=== PATIENT | male | born 1930 | race Caucasian/White ===

== ENCOUNTER 2017-02-18 13:23 | Outpatient (RCR) | payer MEDICARE ==
[2017-01-15] MEDS: CYANOCOBALAMIN 1000MCG/ML VIAL IM ONLY PRN (12:00)
[2017-01-15 13:53] LABS: PLATELET COUNT, AUTOMATED 25 K/uL (150-450)
[2017-01-15 14:19] VITALS: BP 114/50
--- NOTE | 2017-01-18 01:03 | ONCOLOGY FOLLOW UP NOTE ---
EVENT DATE: January 15, 2017 DIAGNOSES 1. Thrombocytopenia. 2. Mild anemia. 3. Hyperlipidemia. 4. Hypertension. 5. Peripheral vascular disease. 6. Depression. 7. History of skin cancer. CHIEF COMPLAINT The patient is here today for followup of his thrombocytopenia. HEMATOLOGY HISTORY The patient is an 85-year-old male who has been followed by Dr. Aguilar Draper for thrombocytopenia. He had a CBC done on July 20, 2015 which showed white count 8000, hemoglobin 13, hematocrit 40.9 and platelets 36,000. There is no abnormality in the differential count. He has mild renal impairment with creatinine 1.5. He had also history of glaucoma which is getting worse lately, and the patient followed by Dr. Coles in [place] for that. He had a history of hypertension on medication. The patient denies any bruising or excessive bleeding. He does not know if he has had this problem in the past or not. Repeat CBC showed white count 6.9, hemoglobin 12.8, hematocrit 58.9, platelets 30,000. Serum folate and red cell folate were normal. Vitamin B12 level is normal at 436; but, methylmalonic acid is high at 0.5. Platelet associated antibodies, direct and indirect, were negative. HISTORY OF PRESENT ILLNESS Patient is here today for followup of his thrombocytopenia. He denies any bleeding, but he has excessive bruising. He is really asymptomatic today and he is doing fine. PAST MEDICAL HISTORY 1. Glaucoma. 2. Hyperlipidemia. 3. Hypertension. 4. Peripheral vascular disease. 5. Depression. 6. History of skin cancer. PAST SURGICAL HISTORY 1. Trabeculectomy two times before. 2. Removal of skin cancer in the past. 3. Tonsillectomy as a child. 4. Eye surgery for glaucoma and cataract. SOCIAL HISTORY The patient is a . He has one daughter. 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 He quit tobacco in 1990 after one pack a day for forty years. He has one drink per week roughly. Denies any abuse of illicit drugs. FAMILY HISTORY Brother had colon cancer in his eighties. CURRENT MEDICATIONS 1. Alphagan 3 drops per day, both eyes. 2. Pred-Forte eye drops, 1 drop per day. 3. Timolol eye drops, 1 drop per day. 4. Dorzolamide eye drops, 1 drop daily. 5. Lisinopril 10 mg once daily. 6. Simvastatin 10 mg once daily. 7. Acetazolamide 250 mg tablet b.i.d. 8. Lisinopril/hydrochlorothiazide 10/12.5 mg half tablet q.a.m. 9. Vitamin D3 at 2000 units daily. 10. Aspirin 81 mg daily. ALLERGIES No known drug allergies. REVIEW OF SYSTEMS CONSTITUTIONAL: No appetite or weight change. No fever, chills or sweating. No recent infection. HEENT: Ears: No tinnitus or hearing problem. Nose: No nasal discharge or epistaxis. Throat: He has bleeding after tooth extraction, which resolved. Eyes: No diplopia or visual changes. RESPIRATORY: He has shortness of breath. He has cough, which is getting better. CARDIOVASCULAR: No chest pain, orthopnea, or paroxysmal nocturnal dyspnea (PND) . No edema. No palpitations. GASTROINTESTINAL: No nausea or vomiting. No diarrhea or constipation. No change in bowel movements. No heartburn or swallowing difficulties. No abdominal pain. No jaundice. No hematemesis, melena or rectal bleeding. GENITOURINARY: No hematuria or dysuria. MUSCULOSKELETAL: No pain in the muscles, joints or bones. NEUROLOGICAL: No tingling or numbness in the hands or feet. No headaches or convulsions. HEMATOLOGIC/LYMPHATIC: He has excessive bruising. SKIN: No skin rash or lumps. PSYCHIATRIC: No anxiety or depression. PHYSICAL EXAMINATION GENERAL: Looks stable. Well-developed, well-nourished, and in no acute distress. VITAL SIGNS: Blood pressure 114/50, pulse 60 per minute, respirations 16 per minute, temperature 98.1, pulse ox 96% on room air. HEENT: Head: Atraumatic. No sinus tenderness to palpation. Eyes: No icterus or conjunctivitis. Mouth and throat: No oral thrush or mucositis. NECK: Supple. No cervical or supraclavicular lymphadenopathy. LUNGS: Clear to auscultation and percussion bilaterally. HEART: Regular rate and rhythm. No gallops, murmurs, clicks or rubs. ABDOMEN: Soft and lax. No tenderness. No hepatosplenomegaly. No masses. EXTREMITIES: No cyanosis, clubbing or edema. LYMPHATICS: No peripheral lymphadenopathy. NEUROLOGICAL: Conscious, alert and oriented times three. No focal motor or sensory deficits. PSYCHIATRIC: Mood and affect appear normal. SKIN: No skin rash, bruise or purpuric eruption. DIAGNOSTIC DATA CBC showed white count 6.3, hemoglobin 12.3, hematocrit 37.7, platelets 25,000. ASSESSMENT 1. 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 Patient was found to have high methylmalonic acid assay at 0.5, and for this reason patient received B12 supplement 1000 mcg intramuscularly every month. His methylmalonic acid normalized after starting B12 and dropped to 0.15 , but his platelets remained low and stable. His platelet count is usually in the range between 30,000-40,000, but today it is 25,000, but patient denies any bleeding. I advised the patient to have his blood count to be checked every month, and to come back in four months with another CBC, and I advised him to come to the office or to the emergency room if he has any bleeding or excessive bruising other than usual, and he is aware of that. 2. Biochemical deficiency of vitamin B12. Patient currently on vitamin B12 shots 1000 mcg deep subcutaneously every month. PLAN 1. Continue followup. 2. Patient to return in four months with CBC. 3. CBC to be checked monthly. 4. Patient is to contact us for any new concerns or complaints. TERRY
[~2017-02-18 13:23] MED LIST: ACET250T19 PO; ALBU8.5H IH; ASPI-1471 PO; BRIM5DRO7 OP; CARV12.578 PO; CHOL200038 PO; DORZ10DR3 OP; FLU45SYR25 IM ONLY; FLUT16SP19 NS; GEMF600T91 PO; LISI-351 PO; LISI-362 PO; OXYGENHOME INH; PANT40TA65 PO; PNEU0.5D3 IM; PRED1DRO2 OP; SIMV10TA98 PO
[2017-02-18] MEDS: CYANOCOBALAMIN 1000MCG/ML VIAL IM ONLY PRN (13:26)
[2017-02-18 13:50] LABS: PLATELET COUNT, AUTOMATED 32 K/uL (150-450)
[2017-04-16] MEDS ORDERED: SIMV10TA98 PO (15:58)
== END 2017-04-14 ==
LOC: SPU 13:23
PROVIDERS: ATTEND Internal Medicine Hematology
DX: D69.6 Thrombocytopenia, unspecified (principal); E53.8 Deficiency of other specified B group vitamins; E78.5 Hyperlipidemia, unspecified; D64.9 Anemia, unspecified; I10 Essential (primary) hypertension; Z85.828 Personal history of other malignant neoplasm of skin; Z87.891 Personal history of nicotine dependence; Z79.899 Other long term (current) drug therapy
CPT/HCPCS: 36415; 85025; 96372; G0463; J3420; 99212

== ENCOUNTER 2017-08-12 12:56 | Outpatient (RCR) | payer MEDICARE ==
[2017-06-04 12:38] VITALS: BP 143/69
[2017-06-04 13:24] LABS: PLATELET COUNT, AUTOMATED 27 K/uL (150-450)
--- NOTE | 2017-06-04 20:24 | ONCOLOGY FOLLOW UP NOTE ---
EVENT DATE: June 04, 2017 DIAGNOSES 1. Thrombocytopenia. 2. Mild anemia. 3. Hyperlipidemia. 4. Hypertension. 5. Peripheral vascular disease. 6. Depression. 7. History of skin cancer. CHIEF COMPLAINT The patient is here today for followup of his thrombocytopenia. HEMATOLOGY HISTORY The patient is an 85-year-old male who has been followed by Dr. Aguilar Draper for thrombocytopenia. He had a CBC done on July 20, 2015 which showed white count 8000, hemoglobin 13, hematocrit 40.9 and platelets 36,000. There is no abnormality in the differential count. He has mild renal impairment with creatinine 1.5. He had also history of glaucoma which is getting worse lately, and the patient followed by Dr. Coles in [place] for that. He had a history of hypertension on medication. The patient denies any bruising or excessive bleeding. He does not know if he has had this problem in the past or not. Repeat CBC showed white count 6.9, hemoglobin 12.8, hematocrit 58.9, platelets 30,000. Serum folate and red cell folate were normal. Vitamin B12 level is normal at 436; but, methylmalonic acid is high at 0.5. Platelet associated antibodies, direct and indirect, were negative. HISTORY OF PRESENT ILLNESS Patient is here today for followup of his thrombocytopenia. He is really totally asymptomatic, except for feeling hot in his left ear sometimes. PAST MEDICAL HISTORY 1. Glaucoma. 2. Hyperlipidemia. 3. Hypertension. 4. Peripheral vascular disease. 5. Depression. 6. History of skin cancer. PAST SURGICAL HISTORY 1. Trabeculectomy two times before. 2. Removal of skin cancer in the past. 3. Tonsillectomy as a child. 4. Eye surgery for glaucoma and cataract. SOCIAL HISTORY The patient is a . He has one daughter. 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 He quit tobacco in 1990 after one pack a day for forty years. He has one drink per week roughly. Denies any abuse of illicit drugs. FAMILY HISTORY Brother had colon cancer in his eighties. CURRENT MEDICATIONS 1. Alphagan 3 drops per day, both eyes. 2. Pred-Forte eye drops, 1 drop per day. 3. Timolol eye drops, 1 drop per day. 4. Dorzolamide eye drops, 1 drop daily. 5. Lisinopril 10 mg once daily. 6. Simvastatin 10 mg once daily. 7. Acetazolamide 250 mg tablet b.i.d. 8. Lisinopril/hydrochlorothiazide 10/12.5 mg half tablet q.a.m. 9. Vitamin D3 at 2000 units daily. 10. Aspirin 81 mg daily. ALLERGIES No known drug allergies. REVIEW OF SYSTEMS CONSTITUTIONAL: No appetite or weight change. No fever, chills or sweating. No recent infection. HEENT: Ears: No tinnitus or hearing problem. Nose: No nasal discharge or epistaxis. Throat: He has bleeding after tooth extraction, which resolved. Eyes: No diplopia or visual changes. RESPIRATORY: He has shortness of breath. He has cough, which is getting better. CARDIOVASCULAR: No chest pain, orthopnea, or paroxysmal nocturnal dyspnea (PND) . No edema. No palpitations. GASTROINTESTINAL: No nausea or vomiting. No diarrhea or constipation. No change in bowel movements. No heartburn or swallowing difficulties. No abdominal pain. No jaundice. No hematemesis, melena or rectal bleeding. GENITOURINARY: No hematuria or dysuria. MUSCULOSKELETAL: No pain in the muscles, joints or bones. NEUROLOGICAL: No tingling or numbness in the hands or feet. No headaches or convulsions. HEMATOLOGIC/LYMPHATIC: He has excessive bruising. SKIN: No skin rash or lumps. PSYCHIATRIC: No anxiety or depression. PHYSICAL EXAMINATION GENERAL: Looks stable. Well-developed, well-nourished, and in no acute distress. VITAL SIGNS: Blood pressure 143/69, pulse 57 per minute, respirations 16 per minute, temperature 98.4, pulse ox 97% on room air. HEENT: Head: Atraumatic. No sinus tenderness to palpation. Eyes: No icterus or conjunctivitis. Mouth and throat: No oral thrush or mucositis. NECK: Supple. No cervical or supraclavicular lymphadenopathy. LUNGS: Clear to auscultation and percussion bilaterally. HEART: Regular rate and rhythm. No gallops, murmurs, clicks or rubs. ABDOMEN: Soft and lax. No tenderness. No hepatosplenomegaly. No masses. EXTREMITIES: No cyanosis, clubbing or edema. LYMPHATICS: No peripheral lymphadenopathy. NEUROLOGICAL: Conscious, alert and oriented times three. No focal motor or sensory deficits. PSYCHIATRIC: Mood and affect appear normal. SKIN: No skin rash, bruise or purpuric eruption. DIAGNOSTIC DATA CBC is still pending. ASSESSMENT 1. 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 Patient was found initially to have high methylmalonic acid assay at 0.5, for which the patient received B12 supplement 1000 mcg intramuscularly every month. His methylmalonic acid normalized after starting B12 shots and dropped to 0.15, but his platelet count remained low, but stable. His platelet count usually ranges between 30,000-40,000. His blood count for today is still pending. I am planning to wait for the result of the blood count to decide about further management. If his platelet count is stable I am planning to see him again in four months with CBC at that time. I advised the patient to contact us if he has any excessive bruising or bleeding. 2. Biochemical deficiency of vitamin B12, normalized with B12 shots 63336 mcg every month. PLAN 1. Continue followup. 2. Patient to return in four months with CBC. 3. CBC to be checked monthly. 4. Patient is to contact us for any new concerns or complaints. TERRY
[2017-07-09 12:40] VITALS: BP 144/62
[2017-07-09 13:16] LABS: PLATELET COUNT, AUTOMATED 25 K/uL (150-450)
[~2017-08-12 12:56] MED LIST changes: +SODCLOD OD; +TETR15DR9 OP
[2017-08-12 13:22] VITALS: BP 106/45
[2017-08-12 13:48] LABS: PLATELET COUNT, AUTOMATED 28 K/uL (150-450)
== END 2017-09-01 ==
LOC: SPU 12:56
PROVIDERS: ATTEND Internal Medicine Hematology
DX: D69.6 Thrombocytopenia, unspecified (principal); E53.8 Deficiency of other specified B group vitamins; D64.9 Anemia, unspecified; E78.5 Hyperlipidemia, unspecified; I10 Essential (primary) hypertension; I73.9 Peripheral vascular disease, unspecified; Z85.828 Personal history of other malignant neoplasm of skin; Z87.891 Personal history of nicotine dependence; R06.02 Shortness of breath; R05 Cough
CPT/HCPCS: 36415; 85025; G0463; 99212

== ENCOUNTER 2017-09-16 11:28 | Outpatient (RCR) | payer MEDICARE ==
[2017-09-10 13:01] VITALS: BP 100/54
[2017-09-10 13:52] LABS: PLATELET COUNT, AUTOMATED 20 K/uL (150-450)
[2017-09-16] MEDS ORDERED: ACETAMINOPHEN 325 MG TAB PO PRN ×2 (12:05)
[2017-09-16] MEDS ORDERED: diphenhydrAMINE 25 MG CAP PO PRN ×2 (12:05)
[2017-09-16 12:44] VITALS: BP 115/64
[2017-09-16 13:01] VITALS: BP 97/56
[2017-09-16 13:36] VITALS: BP 93/54
[2017-09-16 15:15] LABS: PLATELET COUNT, AUTOMATED 50 K/uL (150-450)
[2017-09-16 15:21] VITALS: BP 111/76
== END 2017-09-18 10:13 | disposition home or self-care (01) ==
LOC: SPU 11:28
PROVIDERS: ATTEND Internal Medicine Hematology
DX: D69.6 Thrombocytopenia, unspecified (principal); E78.5 Hyperlipidemia, unspecified
CPT/HCPCS: 36415; 85025; 86900; 86901; A9270; P9035; Q0163

== ENCOUNTER 2017-10-15 12:38 | Outpatient (RCR) | payer MEDICARE ==
[2017-09-30 13:54] LABS: PLATELET COUNT, AUTOMATED 24 K/uL (150-450)
[2017-09-30 16:12] VITALS: BP 113/57
[2017-09-30 16:22] VITALS: BP 122/58
[2017-09-30 16:25] VITALS: BP 122/58
[2017-09-30 16:32] VITALS: BP 122/58
--- NOTE | 2017-09-30 16:50 | Oncology Note ---
PRIMARY CARE PHYSICIAN: Baron Sheikh LAST SEEN BY DR. Vargas 06/04/2017 ACCOMPANIED BY: Self, Home health aid dropped patient off Chief complaint: F/u on Labs Thombocytopenia DIAGNOSIS Thrombocytopenia secondary to ITP- plt today is 23,000 HPI Mr. 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 Patient is seen and examined at the Cancer center, hemodynamically stable, he reports feeling in his usual state of health, besides some easy bruising after he hit himself something around the house. Patient denies any excessive bleeding, he denies any cardiac type chest pain, he denies fevers, chills night sweats. Patient is vision impaired Due to glaucoma who has had few surgeries in [place] left eye worse than the right eye. Patient informs me that his weight loss began after the gallstones removal. he began to lose weight his typical weight was 170lbs aprox. Today's weight is 132.9 pounds. Significant past medical history of glaucoma; hyperlipidemia; history of skin cancer; hypertension; peripheral vascular disease; history of gallstones removal. Of note initial workup done in August 2015. B12 was normal; Serum folate and red cell folate were normal. MMA/ methylmalonic acid was high at 0.5. which was corrected after B12 supplementation 1000mcg Im onth. Living conditions: Patient lives alone but he has a home health aide help twice a week Diagnostic tests & Reports Reviewed on [employer] PAST MEDICAL HISTORY 1. Glaucoma. 2. Hyperlipidemia. 3. Hypertension. 4. Peripheral vascular disease. 5. Depression. 6. History of skin cancer. PAST SURGICAL HISTORY 1. Trabeculectomy two times before. 2. Removal of skin cancer in the past. 3. Tonsillectomy as a child. 4. Eye surgery for glaucoma and cataract. SOCIAL HISTORY The patient is a . He has one daughter. 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 He quit tobacco in 1990 after one pack a day for forty years. He has one drink per week roughly. Denies any abuse of illicit drugs. FAMILY HISTORY Brother had colon cancer in his eighties. CURRENT MEDICATIONS 1. Alphagan 3 drops per day, both eyes. 2. Pred-Forte eye drops, 1 drop per day. 3. Timolol eye drops, 1 drop per day. 4. Dorzolamide eye drops, 1 drop daily. 5. Lisinopril 10 mg once daily. 6. Simvastatin 10 mg once daily. 7. Acetazolamide 250 mg tablet b.i.d. 8. Lisinopril/hydrochlorothiazide 10/12.5 mg half tablet q.a.m. 9. Vitamin D3 at 2000 units daily. 10. Aspirin 81 mg daily. PREVENTIVE: MEDICATIONS: ALLERGIES: No known drug allergies. REVIEW OF SYSTEMS CONSTITUTION: denies fevers, sweats, appetite ok, reports fatigue EYES: +Vision impaired ENT: no mouth soreness, trouble swallowing, neck masses RESPIRATORY: Denies pleuritic pain, dyspnea, wheezing, coughing CARDIOVASCULAR: Denies cardiac type chest pain, palpitations, leg edema GI: denies trouble swallowing, indigestion, abdominal pain, diarrhea, constipation, : No blood in the urine, no urinary urgency/frequency, no dysuria,, no black stools MUSCULOSKELETAL: +limited ROM, no back pain NEURO: denies headaches, dizziness, neuropathy, focal weakness SKIN: bruising, HEMATOLOGY: +bruise easily PSYCH: denies mood changes, depression, anxiety PHYSICAL EXAM Vital Signs Temperature: 97.8 Pulse: 64 BP Systolic: 107 BP Diastolic: 50 Respiratory Rate: 16 O2 SAT: 93% RA O2 Delivery: Height (inches) Weight lb: 133 pounds Weight oz: Weight Kg (J Carlos): Pain: 1 PERFORMANCE STATUS: ECOG 3-Capable of only limited self-care; GENERAL: pleasant conversant gentleman , very well versed, with visual limitations due to glaucoma, in no apparent distress ORAL: mucosa moist without lesions, pharynx not injected EYES: no icterus, no pale conjunctivae, Glaucoma, cloudy appearance lenses, Left eye worse than right eye. NECK: supple, no masses, no palpable lymph nodes LUNGS: diminished bilaterally, breathing, non-labored CVS: regular rate, rhythm, nl s1, s2, no murmurs ABD: normal bowel sounds, soft non tender, non-distended, no hepatomegaly, no splenomegaly, no masses EXTREMITIES: no edema, no cyanosis MUSCULOSKELETAL: unsteady gait NEURO: alert, appropriate, motor grossly normal, sensory grossly non focal, and cranial nerves grossly intact NODES: no cervical, supraclavicular, axillary, inguinal adenopathy SKIN: minimal ecchymosis, no open wounds, no itchiness. PSYCH: normal mood and affect, good judgment and insight. Assessment & Plan 1. Thrombocytopenia, most probably due to chronic idiopathic thrombocytopenic purpura. platelet count is 23K , his baseline is in the 30-40K. The patient had a high methylmalonic acid assay at 0.5 and for this reason the patient received vitamin B12 supplements in the form of 1000 mcg intramuscularly. Despite that fact, his methylmalonic acid normalized at 0.15, but his platelets are still low today. The patient was advised to be careful about the use of aspirin, which is needed because of his vascular disease and bleeding because of the low platelets. The patient was advised to contact us for any excessive bruising or bleeding. 2. Vitamin B12 deficiency biochemically with high methylmalonic acid assay at 0.5. The patient received vitamin B12 supplements in the form of shots 1000 mcg and his methylmalonic acid assay normalized at 0.15 in the past. PLAN 1. Transfuse 1 unit of Leukreduced Platelets today. followed by cbc check one hour s/p transfusion. 2. CBC to be checked monthly. 3. Re-check B12, folate, MMA 4. Continue B12 at 1000 mcg deep subcutaneously every month, until Discontinued by MD/JEZ 5. Continue follow up. 6. The patient to contact us for any new concerns or complaints. 7. Bleeding and Fall precaution in the setting of low platelet and aspirin regimen for underlying cardiac disease. 8. Patient to Go to ER if any active bleeding, SOB, chest or abdominal pain. 9. The patient to return in three months with CBC. 10. Recommend Patient to f/u with GI in [place], significant history of gall stones removal 11. Recommend Patient to f/u with Infantry Officer in [place] TIME SPENT: 25 minutes > 20 minutes includes but not limited to discussion, counselling and co-ordination~ of care. Discussion with other health care providers, record review, review of lab work, diagnostic tests. Plan discussed extensively with patient. All the questions answered today. Thank you for the opportunity to be involved in the care of Mr. Aries Noel. Billing Level: Return visit 4 BASIL WHITE, ONC Sep 30, 2017 15:31
[2017-09-30 16:56] VITALS: BP 141/65
[2017-09-30 18:13] LABS: PLATELET COUNT, AUTOMATED 44 K/uL (150-450)
[~2017-10-15 12:38] MED LIST changes: +ACETAMINOPHEN 325 MG TAB PO ONE; +CYANOCOBALAMIN 1000MCG/ML VIAL IM ONLY PRN; +DEXTROSE 5%(*) 100 ML BAG 100 ML IVPB PRN; +LIDOCAINE/SOD BICARB 8.4% SYR ID PRN; +NS(*) 0.9% 100 ML BAG 100 ML IVPB PRN; +NS(*) 0.9% 500 ML BAG 500 ML IV PRN; +diphenhydrAMINE 25 MG CAP PO ONE
[2017-10-15 13:56] LABS: PLATELET COUNT, AUTOMATED 22 K/uL (150-450)
[2017-10-15 15:06] VITALS: BP 128/76
--- NOTE | 2017-10-15 17:11 | ONCOLOGY FOLLOW UP NOTE ---
EVENT DATE: October 15, 2017 DIAGNOSES 1. Thrombocytopenia. 2. Mild anemia. 3. Hyperlipidemia. 4. Hypertension. 5. Peripheral vascular disease. 6. Depression. 7. History of skin cancer. CHIEF COMPLAINT The patient is here today for followup of his thrombocytopenia. HEMATOLOGY HISTORY The patient is an 86-year-old male who has been followed by Dr. Aguilar Draper for thrombocytopenia. He had a CBC done on July 20, 2015 which showed white count 8000, hemoglobin 13, hematocrit 40.9 and platelets 36,000. There is no abnormality in the differential count. He has mild renal impairment with creatinine 1.5. He had also history of glaucoma which is getting worse lately, and the patient followed by Dr. Coles in [place] for that. He had a history of hypertension on medication. The patient denies any bruising or excessive bleeding. He does not know if he has had this problem in the past or not. Repeat CBC showed white count 6.9, hemoglobin 12.8, hematocrit 58.9, platelets 30,000. Serum folate and red cell folate were normal. Vitamin B12 level is normal at 436; but, methylmalonic acid is high at 0.5. Platelet associated antibodies, direct and indirect, were negative. HISTORY OF PRESENT ILLNESS Patient is here today for followup of his thrombocytopenia. He is doing fine currently. He is complaining of runny nose. He bruises easily. He is weak, tired and fatigued. PAST MEDICAL HISTORY 1. Glaucoma. 2. Hyperlipidemia. 3. Hypertension. 4. Peripheral vascular disease. 5. Depression. 6. History of skin cancer. PAST SURGICAL HISTORY 1. Trabeculectomy two times before. 2. Removal of skin cancer in the past. 3. Tonsillectomy as a child. 4. Eye surgery for glaucoma and cataract. SOCIAL HISTORY The patient is a . He has one daughter. 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 He quit tobacco in 1990 after one pack a day for forty years. He has one drink per week roughly. Denies any abuse of illicit drugs. FAMILY HISTORY Brother had colon cancer in his eighties. CURRENT MEDICATIONS 1. Alphagan 3 drops per day, both eyes. 2. Pred-Forte eye drops, 1 drop per day. 3. Timolol eye drops, 1 drop per day. 4. Dorzolamide eye drops, 1 drop daily. 5. Lisinopril 10 mg once daily. 6. Simvastatin 10 mg once daily. 7. Acetazolamide 250 mg tablet b.i.d. 8. Lisinopril/hydrochlorothiazide 10/12.5 mg half tablet q.a.m. 9. Vitamin D3 at 2000 units daily. 10. Aspirin 81 mg daily. ALLERGIES No known drug allergies. REVIEW OF SYSTEMS CONSTITUTIONAL: No appetite or weight change. No fever, chills or sweating. No recent infection. HEENT: Ears: No tinnitus or hearing problem. Nose: He has nasal discharge. No epistaxis. Throat: He has bleeding after tooth extraction, which resolved. Eyes: No diplopia or visual changes. RESPIRATORY: He has shortness of breath. He has cough, which is getting better. CARDIOVASCULAR: No chest pain, orthopnea, or paroxysmal nocturnal dyspnea (PND) . No edema. No palpitations. GASTROINTESTINAL: No nausea or vomiting. No diarrhea or constipation. No change in bowel movements. No heartburn or swallowing difficulties. No abdominal pain. No jaundice. No hematemesis, melena or rectal bleeding. GENITOURINARY: No hematuria or dysuria. MUSCULOSKELETAL: No pain in the muscles, joints or bones. NEUROLOGICAL: No tingling or numbness in the hands or feet. No headaches or convulsions. HEMATOLOGIC/LYMPHATIC: He bruises easily. He is weak, tired and fatigued. SKIN: No skin rash or lumps. PSYCHIATRIC: No anxiety or depression. PHYSICAL EXAMINATION GENERAL: Looks stable. Well-developed, well-nourished, and in no acute distress. VITAL SIGNS: Blood pressure 100/54, pulse 66 per minute, respirations 16 per minute, temperature 97.7, pulse ox 93% on room air. HEENT: Head: Atraumatic. No sinus tenderness to palpation. Eyes: No icterus or conjunctivitis. Mouth and throat: No oral thrush or mucositis. NECK: Supple. No cervical or supraclavicular lymphadenopathy. LUNGS: Clear to auscultation and percussion bilaterally. HEART: Regular rate and rhythm. No gallops, murmurs, clicks or rubs. ABDOMEN: Soft and lax. No tenderness. No hepatosplenomegaly. No masses. EXTREMITIES: No cyanosis, clubbing or edema. LYMPHATICS: No peripheral lymphadenopathy. NEUROLOGICAL: Conscious, alert and oriented times three. No focal motor or sensory deficits. PSYCHIATRIC: Mood and affect appear normal. SKIN: No skin rash, bruise or purpuric eruption. DIAGNOSTIC DATA CBC is still pending. ASSESSMENT 1. 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 Patient was found to have high methylmalonic acid assay at 0.5, for which the patient received vitamin B12 supplement 1000 mcg intramuscularly/ subcutaneously every month. His methylmalonic acid assay normalized after starting B12 shots and dropped to 0.15, but his platelet count remained low, but stable. Usually his platelet count runs between 30,000-40,000. His blood count for today is pending, and I am planning to review the result and if the patient has stable platelet count, I am planning to see him again in three months with CBC, but I will repeat his CBC on a monthly basis. I advised the patient to contact us if he has excessive bruising or bleeding. 2. Biochemical deficiency of vitamin B12, normalized with B12 shots 28130 mcg every month. We will continue the same. PLAN 1. Continue followup. 2. Vitamin B12 shots 1000 mcg subcutaneously every month. 3. Patient to return in three months with CBC. 4. CBC to be checked monthly. 5. Patient is to contact us for any new concern or complaints. TIFFANIED
== END 2017-10-21 14:05 | disposition home or self-care (01) ==
LOC: SPU 12:38
PROVIDERS: ATTEND Internal Medicine Hematology
DX: D69.59 Other secondary thrombocytopenia (principal); D69.3 Immune thrombocytopenic purpura; E53.8 Deficiency of other specified B group vitamins; Z87.891 Personal history of nicotine dependence; Z79.899 Other long term (current) drug therapy; D64.9 Anemia, unspecified; E78.5 Hyperlipidemia, unspecified; I10 Essential (primary) hypertension; Z85.828 Personal history of other malignant neoplasm of skin; R53.1 Weakness; R53.83 Other fatigue; R06.02 Shortness of breath
CPT/HCPCS: 36415; 85025; 86900; 86901; 96372; A9270; G0463; J3420; J7040; P9035; Q0163; 36430; 99212

== ENCOUNTER → 2017-12-09 | Outpatient (CLI) | payer MEDICARE ==
[~2017-12-09] MED LIST changes: -ACETAMINOPHEN 325 MG TAB PO ONE; -CYANOCOBALAMIN 1000MCG/ML VIAL IM ONLY PRN; -DEXTROSE 5%(*) 100 ML BAG 100 ML IVPB PRN; -GEMF600T91 PO; +GEMF600T92 PO; -LIDOCAINE/SOD BICARB 8.4% SYR ID PRN; -NS(*) 0.9% 100 ML BAG 100 ML IVPB PRN; -NS(*) 0.9% 500 ML BAG 500 ML IV PRN; -diphenhydrAMINE 25 MG CAP PO ONE
--- NOTE | 2017-12-09 10:55 | RADIOLOGY IMAGING REPORT ---
FACILITY: [facility] [place] PATIENT NAME: Bert Chris : 1930 MR: [id number] V: [id number] EXAM DATE: ORDERING PHYSICIAN: LESLIE DAMIAN TECHNOLOGIST: Location: [facility] Patient: Bert Chris : 1930 Visit/Account:[id number] Date of Sevice: 12/09/2017 Spleen ultrasound INDICATION: Splenomegaly COMPARISON: CT October 08, 2016 FINDINGS: The spleen is normal in size in the sagittal dimension measuring 12.9 cm. The spleen is mildly enlar ged in the transverse dimension as before measuring up to 8.9 cm transverse. The left kidney was imaged and measures 11.2 cm sagittal dimension. Multiple left renal cysts are pr esent the largest measuring 5.5 cm. A few echogenic foci are present in the left kidney which likely represent calculi. The infrarenal aorta is mildly aneurysmal which is likely unchanged but better visualized on comparis on CT. IMPRESSION: 1. Mild unchanged splenomegaly. 2. Unchanged approximate 3 cm aortic aneurysm better visualized on prior CT. Report Dictated By: Remy Paulino MD at 12/09/2017 10:44 AM Report E-Signed By: Remy Paulino MD at 12/09/2017 10:51 AM WSN:[id number]
== END ==
LOC: US 08:37
PROVIDERS: ATTEND Internal Medicine Medical Oncology
DX: R16.1 Splenomegaly, not elsewhere classified (principal); I71.9 Aortic aneurysm of unspecified site, without rupture
CPT/HCPCS: 76705

== ENCOUNTER 2017-12-28 15:04 | Emergency (ER) | payer MEDICARE ==
[~2017-12-28 15:04] MED LIST changes: -FISH1CAP23 PO; -FURO-45 PO; -LATA2.5D7 OP; -TIMO5DRO3 OP
--- NOTE | 2017-12-28 15:17 | ER Report ---
History and Physical Time Seen By MD: 15:14 HPI/ROS CHIEF COMPLAINT: Fall HISTORY OF PRESENT ILLNESS: This is an 87-year-old male who presents to the emergency department from the [facility] for a fall. Patient had a mechanical fall last week, states he was using his cane and walked out to get the mail walking back to his house and had what he thinks is may be a trip and type fall where he landed on his buttocks, then fell over to his left shoulder. Patient has had left shoulder pain since then. 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 The patient was revealed from the [facility] center to the emergency department, the patient was now willing initially to have an IV, he didn't think was necessary. Patient ultimately does not want to be in the emergency department. He has no other complaints other than shoulder pain and some additional phlegm in his throat occasionally since the fall last week. He denies increased shortness of breath, chest pain, no fevers or chills. Denies hitting his head, does have some bruising to the left-sided neck, he states this is from cryotherapy from dermatology, they were removing actinic keratosis. REVIEW OF SYSTEMS: Constitutional: No fever, no chills. Eyes: No discharge. ENT: No sore throat. Cardiovascular: No chest pain, no palpitations. Respiratory: No cough, no shortness of breath. Gastrointestinal: No abdominal pain, no vomiting. Genitourinary: No hematuria. Musculoskeletal: As above. Skin: As above. Neurological: No headache. Allergies: Coded Allergies: No Known Drug Allergies (Unverified , 12/28/17) Home Meds Active Scripts Simvastatin (SIMVASTATIN) 10 Mg Tablet, 1 MG PO HS, #90 TAB 4 Refills Prov:JOSSE DRAPER MD 04/16/17 Pantoprazole Sodium (PANTOPRAZOLE SODIUM) 40 Mg Tablet.dr, 40 MG PO QDAY, #90 TAB.SR 4 Refills Prov:JOSSE DRAPER MD 11/07/16 Lisinopril (LISINOPRIL) 10 Mg Tablet, 10 MG PO QDAY, #90 TAB 3 Refills Prov:JOSSE DRAPER MD 04/22/16 Albuterol Sulfate 90 Mcg/Act (PROAIR HFA 90 MCG/ACT) 8.5 Gm Hfa.aer.ad, 1-2 PUFF IH 3-4XD, #1 INHALER 3 Refills Prov:JOSSE DRAPER MD 07/30/15 Oxygen (OXYGEN) Inha, 2 L INH QHS, #2 L Prov:JOSSE DRAPER MD 07/19/15 Acetazolamide (ACETAZOLAMIDE) 250 Mg Tablet, 1 TAB PO BID, #180 TAB 3 Refills Prov:JOSSE DRAPER MD 12/13/14 Reported Medications Prednisone (PREDNISONE) 50 Mg Tablet, 50 MG PO DAILY Pt to taper dose by 10mg per week. 12/14/17 Tetrahydrozoline Hcl (EYE DROPS) 15 Ml Drops, 15 ML OP AB for LANTAPROST 06/04/17 Sodium Chloride (MAGDALENA-128) 15 Ml Soln, 15 ML OD AB 06/04/17 Carvedilol (CARVEDILOL) 12.5 Mg Tablet, 12.5 MG PO BID, #10 TAB 10/20/16 Prednisolone Acetate (PRED FORTE) 1 Ml Drops.susp, 1 DROP OP QDAY 12/13/14 Dorzolamide Hcl/Timolol Maleat (COSOPT EYE DROPS) 10 Ml Drops, 1 DROP OP QDAY 12/13/14 Brimonidine Tartrate (ALPHAGAN P) 5 Ml Drops, 1 DROP OP TID 12/13/14 Past Medical/Surgical History The patient has a past medical and surgical history of hypertension, COPD, elbow fracture, legally blind, wears glasses, hard of hearing, idiopathic thrombocytopenia, skin cancer, actinic keratosis, glaucoma. Reviewed Nurses Notes: Yes Hx Smoking: Yes Smoking Status: Former Smoker Exposure to Second Hand Smoke?: No Constitutional Vital Sign - Last 24 Hours 12/28/17 12/28/17 12/28/17 12/28/17 15:14 15:15 15:30 15:45 Temp 97.5 Pulse 49 56 50 Resp 14 B/P (MAP) 111/52 110/60 (77) Pulse Ox 96 91 93 93 O2 Delivery Room Air 12/28/17 12/28/17 12/28/17 16:00 16:15 16:18 Pulse 51 49 B/P (MAP) 110/57 (74) Pulse Ox 93 90 Physical Exam General Appearance: The patient is alert, has no immediate need for airway protection and no signs of toxicity, very thin. Eyes: Pupils equal and round no pallor or injection. ENT, Mouth: Mucous membranes are dry. Respiratory: There are no retractions, lungs are clear to auscultation. Cardiovascular: Regular rate and rhythm, no murmurs, clicks or rubs. Gastrointestinal: Abdomen is soft and non tender, no masses, bowel sounds normal. Neurological: Alert and oriented 4. Moving all extremities. Following all commands. No focal neuro deficits. Skin: Bruising to the left anterior neck. Healing skin tears to the left forearm, hand and elbow. Large, stable clots/scabs to the skin tears. Bruising to the arms in multiple stages of healing. Musculoskeletal: Neck is supple non tender. Extremities very mild tenderness to the left anterior shoulder with firm palpation, no crepitus or obvious deformities. Can abduct and adduct with mild discomfort. DIFFERENTIAL DIAGNOSIS: After history and physical exam differential diagnosis was considered for contusion, shoulder fracture, dehydration and failure to thrive. Medical Decision Making EKG/Imaging Imaging ORDERING PHYSICIAN: LESLIE DAMIAN TECHNOLOGIST: Location: [facility] Patient: Bert Chris : 1930 Visit/Account:[id number] Date of Sevice: 12/28/2017 Exam type: CHEST PA AND LAT History: Fell at home, left shoulder pain Comparison: October 08, 2016. Findings: There is hyperinflation of the lung mas. There is mild blunting left costophrenic angle although appears similar to the prior study. There is no evidence of focal infiltrates, pleural effusions or pulmonary edema. No evidence of a pneumothorax or pneumomediastinum. The cardiac silhouette is normal in size. IMPRESSION: 1. Mild hyperinflation lung mas although no evidence of acute pulmonary consolidation Report Dictated By: Freya Reyes MD at 12/28/2017 3:54 PM Report E-Signed By: Freya Reyes MD at 12/28/2017 3:55 PM WSN:FRIDA ORDERING PHYSICIAN: LESLIE DAMIAN TECHNOLOGIST: Location: [facility] Patient: Bert Chris : 1930 Visit/Account:[id number] Date of Sevice: 12/28/2017 Exam type: SHOULDER MIN 2 VIEWS LEFT History: Fell at home, left shoulder pain Comparison: None. Findings: Two views of the left shoulder demonstrate mild degenerative changes of the left glenohumeral joint. There is no evidence of acute fracture or dislocation. No evidence of a left AC joint separation. IMPRESSION: 1. Mild degenerative changes of the left glenohumeral joint although no evidence of acute fracture or dislocation involving the left shoulder Report Dictated By: Freya Reyes MD at 12/28/2017 3:51 PM Report E-Signed By: Freya Reyes MD at 12/28/2017 3:52 PM WSN:FRIDA ED Course/Re-evaluation Clinical Indication for ER IV: Hydration, IV Access ED Course The patient was admitted to a room. A history of physical were obtained. Differential diagnoses were considered. The patient was sent from the oncology [facility], they were concerned with the patient's recent fall last week, his left shoulder pain, and the bruising to his arms and his neck. He also has skin tears to the left arm patient was reluctant to come to the ED however he ultimately did. I did talk to the patient's about his renal function, I did ask if he would allow us to try at least 1 IV starts and give him some fluids, the patient was a agreeable to this however we were unsuccessful on the IV start, patient's refused any additional requests. The patient also had a left shoulder x-ray which was negative for any acute findings, chest x-ray was negative for any acute findings. The patient's rbc's 3.38 H&H 9.5 and 31.1, platelet count of 67 which all laboratory studies are about the same, the platelet count has improved. The chemistry is showing the BUN 79, creatinine 2.1 glucose 192. I did review the laboratory studies and the radiology results with the patient. The patient did indicate several times that he does not want to stay in the hospital, that he "just came in to the cancer Center for his appointments and then was sent to the emergency department and just wants to go home". I did talk to the patient about home health, he does not want home health. Patient is of sound mind at the time of our interaction and the patient was ultimately discharged home. I did speak with the cancer center as noted below, they will contact him within the next 1-2 days for follow-up. The patient was in agreement with this. And was discharged home. The patient was assisted into his clothes, into a wheelchair and escorted out where he received a ride home. 12/28/2017 4:17:47 pm I did speak with Alyce at the cancer center did give her an update, attempted one IV which the patient was agreeable to, it was unsuccessful patient did not want to try any subsequent interventions. I also updated her on the negative left shoulder and chest x-ray. I also updated the patient on the x- rays. She said to keep his prednisone at this same dose they will call him in a couple of days with updates and formulate a plan. Decision to Disposition Date: Dec 28, 2017 Decision to Disposition Time: 16:17 Depart Departure Latest Vital Signs Vital Signs Date Time Temp Pulse Resp B/P (MAP) Pulse Ox O2 Delivery O2 Flow Rate FiO2 12/28/17 16:18 110/57 (74) 12/28/17 16:15 49 90 12/28/17 15:14 97.5 14 Room Air Impression: Primary Impression: Thrombocytopenia Additional Impressions: Multiple contusions Dehydration Condition: Improved Disposition: HOME OR SELF-CARE Referrals: JOSSE DRAPER MD (PCP) 1 Week Patient Instructions: Thrombocytopenia (ED) Additional Instructions: I would encourage you to increase her water intake over the next several days, this will help her kidney function as well as the phlegm in her throat. Be sure to use your cane for stability when walking. The cancer center will contact you in the next 1-2 days for any changes in your medications and follow-up appointments. I would also recommend following up with Dr. Draper within 1 week for reevaluation. Return to the emergency department for any other concerns or worsening symptoms. Continue with your current wound management of the skin tears on the left arm. Problem Qualifiers NU PARMAR MAT TESTER-BC Dec 28, 2017 15:17
[2017-12-28] MEDS ORDERED: NS(*) 0.9% 500 ML BAG 500 ML IV ONE (15:55)
[2017-12-28 16:18] VITALS: BP 110/57
[2017-12-29] MEDS ORDERED: FURO-45 PO (14:18)
[2017-12-29] MEDS ORDERED: LATA2.5D7 OP (14:18)
[2017-12-29] MEDS ORDERED: TIMO5DRO3 OP (14:18)
[2017-12-29] MEDS ORDERED: FISH1CAP23 PO (18:22)
== END 2017-12-28 16:41 | disposition home or self-care (01) ==
LOC: ER 15:19
DX: D69.6 Thrombocytopenia, unspecified (principal); E86.0 Dehydration
CPT/HCPCS: 99281

== ENCOUNTER → 2017-12-28 | Outpatient (CLI) | payer MEDICARE ==
[~2017-12-28] MED LIST changes: +FISH1CAP23 PO; +FURO-45 PO; +LATA2.5D7 OP; +PRED50TA22 PO; +TIMO5DRO3 OP
--- NOTE | 2017-12-28 15:57 | RADIOLOGY IMAGING REPORT ---
[place] [facility] [place] NAME: Bert Chris : 1930 MR: [id number] V: [id number] EXAM DATE: ORDERING PHYSICIAN: LESLIE DAMIAN TECHNOLOGIST: [place] [facility] [place] Patient: Bert Chris : 1930 Visit/Account:[id number] Date of Sevice: 12/28/2017 Exam type: SHOULDER MIN 2 VIEWS LEFT History: Fell at home, left shoulder pain Comparison: None. Findings: Two views of the left shoulder demonstrate mild degenerative changes of the left glenohumeral joint. There is no evidence of acute fracture or dislocation. No evidence of a left AC joint separation. IMPRESSION: 1. Mild degenerative changes of the left glenohumeral joint although no evidence of acute fracture o r dislocation involving the left shoulder Report Dictated By: Freya Reyes MD at 12/28/2017 3:51 PM Report E-Signed By: Freya Reyes MD at 12/28/2017 3:52 PM WSN:[email or web address]
--- NOTE | 2017-12-28 16:00 | RADIOLOGY IMAGING REPORT ---
FACILITY: [facility] - [place] PATIENT NAME: Bert Chris : 1930 MR: [id number] V: [id number] EXAM DATE: ORDERING PHYSICIAN: LESLIE DAMIAN TECHNOLOGIST: Location: [facility] Patient: Bert Chris : 1930 Visit/Account:[id number] Date of Sevice: 12/28/2017 Exam type: CHEST PA AND LAT History: Fell at home, left shoulder pain Comparison: October 08, 2016. Findings: There is hyperinflation of the lung mas. There is mild blunting left costophrenic angle although appears similar to the prior study. There is no evidence of focal infiltrates, pleural effusions or pulmonary edema. No evidence of a pneumothorax or pneumomediastinum. The cardiac silhouette is norm al in size. IMPRESSION: 1. Mild hyperinflation lung mas although no evidence of acute pulmonary consolidation Report Dictated By: Freya Reyes MD at 12/28/2017 3:54 PM Report E-Signed By: Freya Reyes MD at 12/28/2017 3:55 PM WSN:[email or web address]
== END ==
LOC: RAD 14:37
PROVIDERS: ATTEND Internal Medicine Medical Oncology
DX: M19.012 Primary osteoarthritis, left shoulder (principal)
CPT/HCPCS: 71046

== ENCOUNTER 2017-12-29 14:00 | Inpatient (IN) | payer MEDICARE ==
[~2017-12-29] VITALS: Ht 175.3 cm; Wt 53.1 kg
--- NOTE | 2017-12-29 14:04 | ER Report ---
History and Physical Time Seen By : 14:04 HPI/ROS CHIEF COMPLAINT: Dehydration HISTORY OF PRESENT ILLNESS: Patient is an 87-year-old male here with complaints of dehydration, failure to thrive, thrombocytopenia, RADHA. Patient was sent home yesterday after patient refused a 2nd attempt at IV access due to dehydration. Patient was noted to live alone and have only a visiting aid. 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 He was noted to have p revious low platelets and had undergone steroid therapy at some point. Due to the patient's bleeding prevalence, discussion was in process about having a PIC line placed or a port but prior to the port, a bone marrow biopsy would have to be completed. Patient had intermittently changed his mind regarding his course of evaluation and treatment. Today he returns with complaints of dehydration, failure to thrive prompting evaluation. REVIEW OF SYSTEMS: Constitutional: No fever, no chills, + generalized weakness Eyes: + diminished visual acuity at baseline ENT: No sore throat. Cardiovascular: No chest pain, no palpitations. Respiratory: No cough, no shortness of breath. Gastrointestinal: No abdominal pain, no vomiting. Genitourinary: No hematuria. Musculoskeletal: No back pain. Skin: + poor skin turgor Neurological: No headache. Allergies: Coded Allergies: No Known Drug Allergies (Unverified , 12/29/17) Home Meds Active Scripts Simvastatin (SIMVASTATIN) 10 Mg Tablet, 1 MG PO HS, #90 TAB 4 Refills Prov:JOSSE LEWIS MD 04/16/17 Pantoprazole Sodium (PANTOPRAZOLE SODIUM) 40 Mg Tablet.dr, 40 MG PO QDAY, #90 TAB.SR 4 Refills Prov:JOSSE LEWIS MD 11/07/16 Lisinopril (LISINOPRIL) 10 Mg Tablet, 10 MG PO QDAY, #90 TAB 3 Refills Prov:JOSSE LEWIS MD 04/22/16 Albuterol Sulfate 90 Mcg/Act (PROAIR HFA 90 MCG/ACT) 8.5 Gm Hfa.aer.ad, 1-2 PUFF IH 3-4XD, #1 INHALER 3 Refills Prov:JOSSE LEWIS MD 07/30/15 Oxygen (OXYGEN) Inha, 2 L INH QHS, #2 L Prov:JOSSE LEWIS MD 07/19/15 Acetazolamide (ACETAZOLAMIDE) 250 Mg Tablet, 1 TAB PO BID, #180 TAB 3 Refills Prov:JOSSE LEWIS MD 12/13/14 Reported Medications Timolol (BETIMOL) 5 Ml Drops, 1 DROP OP DAILY 12/29/17 Latanoprost (LATANOPROST) 2.5 Ml Drops, 2.5 ML OP HS 12/29/17 Furosemide (FUROSEMIDE) 20 Mg Tablet, 1 TAB PO DAILY, TAB 12/29/17 Prednisone (PREDNISONE) 50 Mg Tablet, 50 MG PO DAILY Pt to taper dose by 10mg per week. 12/14/17 Sodium Chloride (MAGDALENA-128) 15 Ml Soln, 15 ML OD AB 06/04/17 Carvedilol (CARVEDILOL) 12.5 Mg Tablet, 12.5 MG PO BID, #10 TAB 10/20/16 Prednisolone Acetate (PRED FORTE) 1 Ml Drops.susp, 1 DROP OP QDAY 12/13/14 Dorzolamide Hcl/Timolol Maleat (COSOPT EYE DROPS) 10 Ml Drops, 1 DROP OP QDAY 12/13/14 Brimonidine Tartrate (ALPHAGAN P) 5 Ml Drops, 1 DROP OP TID 12/13/14 Discontinued Reported Medications Tetrahydrozoline Hcl (EYE DROPS) 15 Ml Drops, 15 ML OP AB for LANTAPROST 06/04/17 Hx Smoking: Yes Smoking Status: Former Smoker Exposure to Second Hand Smoke?: No Constitutional Vital Sign - Last 24 Hours 12/29/17 12/29/17 12/29/17 12/29/17 14:07 14:07 14:30 15:00 Temp 97.6 Pulse 65 Resp 12 B/P (MAP) 106/53 (70) 106/53 87/61 (70) 91/54 (66) Pulse Ox 93 O2 Delivery Room Air 12/29/17 12/29/17 12/29/17 12/29/17 15:30 16:00 16:00 16:30 B/P (MAP) 99/51 (67) 96/56 (69) 96/56 (69) 114/62 (79) 12/29/17 12/29/17 12/29/17 16:30 16:45 17:00 Pulse 61 58 62 Resp 22 15 26 B/P (MAP) 114/62 (79) 116/64 (81) Pulse Ox 94 92 89 Physical Exam General Appearance: The patient is alert, has no immediate need for airway protection and no signs of toxicity. No acute distress Eyes: Pupils equal and round no pallor or injection. ENT, Mouth: Mucous membranes are dry Respiratory: There are no retractions, lungs are clear to auscultation. Cardiovascular: Regular rate and rhythm. Gastrointestinal: Abdomen is soft and non tender, no masses, bowel sounds normal. Neurological: No focal neurological deficits Skin: Poor skin turgor, scattered ecchymosis and skin tears Musculoskeletal: Neck is supple non tender. Extremities are nontender, nonswollen and have full range of motion. DIFFERENTIAL DIAGNOSIS: After history and physical exam differential diagnosis was considered for failure to thrive, dehydration, electrolyte abnormality, acute renal failure, bleeding dyscrasia Medical Decision Making Data Points Result Diagram: 12/29/17 1445 12/29/17 1445 Laboratory Hematology Test 12/29/17 14:45 12/29/17 16:20 Red Blood Count 3.38 M/uL (4.00-5.60) Mean Corpuscular Volume 90.3 fL (80.0-96.0) Mean Corpuscular Hemoglobin 28.7 pg (26.0-33.0) Mean Corpuscular Hemoglobin Concent 31.8 g/dL (32.0-36.0) Red Cell Distribution Width 22.5 % (11.5-14.5) Mean Platelet Volume 7.3 fL (7.2-11.1) Neutrophils (%) (Auto) % (39.4-72.5) Lymphocytes (%) (Auto) % (17.6-49.6) Monocytes (%) (Auto) % (4.1-12.4) Eosinophils (%) (Auto) % (0.4-6.7) Basophils (%) (Auto) % (0.3-1.4) Nucleated RBC Relative Count (auto) /100WBC Neutrophils # (Auto) K/uL (2.0-7.4) Lymphocytes # (Auto) K/uL (1.3-3.6) Monocytes # (Auto) K/uL (0.3-1.0) Eosinophils # (Auto) K/uL (0.0-0.5) Basophils # (Auto) K/uL (0.0-0.1) Nucleated RBC Absolute Count (auto) K/uL Neutrophils % (Manual) 90 % (39.4-72.5) Band Neutrophils % 2 % Lymphocytes % (Manual) 5 % (17.6-49.6) Monocytes % (Manual) 2 % (4.1-12.4) Eosinophils % (Manual) 1 % (0.4-6.7) Basophils % (Manual) 0 % (0.3-1.4) Platelet Estimate Low Hypochromasia 1 Macrocytosis 1+ Spherocytes 1+ Tear Drop Cells 1+ Ovalocytes 1+ Prothrombin Time 14.0 seconds (12.0-14.4) Prothromb Time International Ratio 1.07 Activated Partial Thromboplast Time 27 seconds (23-35) Sodium Level 142 mmol/L (137-145) Potassium Level 4.0 mmol/L (3.5-5.0) Chloride Level 104 mmol/L (98-107) Carbon Dioxide Level 26 mmol/L (22-30) Blood Urea Nitrogen 77 mg/dl (9-21) Creatinine 2.00 mg/dl (0.66-1.25) Glomerular Filtration Rate Calc 31.8 Random Glucose 127 mg/dl (75-110) Calcium Level 9.7 mg/dl (8.4-10.2) Total Bilirubin 0.8 mg/dl (0.2-1.3) Aspartate Amino Transf (AST/SGOT) 19 U/L (0-35) Alanine Aminotransferase (ALT/SGPT) 26 U/L (0-56) Alkaline Phosphatase 48 U/L (0-126) Total Protein 6.4 g/dl (6.3-8.2) Albumin 3.6 g/dl (3.5-5.0) Lipase 39 U/L (23-300) Urine Color Annamarie Urine Clarity Slightly-cloudy Urine pH 6.0 pH (4.8-9.5) Urine Specific [place] 1.010 Urine Protein Trace mg/dL (NEGATIVE) Urine Glucose (UA) Negative mg/dL (NEGATIVE) Urine Ketones Negative mg/dL (NEGATIVE) Urine Blood Negative (NEGATIVE) Urine Nitrite Negative (NEGATIVE) Urine Bilirubin Negative (NEGATIVE) Urine Urobilinogen 0.2 mg/dL (0.2-1.9) Urine Leukocyte Esterase Small (NEGATIVE) Urine RBC 2 /HPF (0-2/HPF) Urine WBC 22 /HPF (0-5/HPF) Urine Squamous Epithelial Cells Few /LPF (</=FEW) Urine Bacteria Few /HPF (NONE-FEW) Urine Mucus None /HPF (NONE-FEW) Chemistry Test 12/29/17 14:45 12/29/17 16:20 White Blood Count 10.5 k/uL (4.5-11.0) Red Blood Count 3.38 M/uL (4.00-5.60) Hemoglobin 9.7 g/dL (14.0-18.0) Hematocrit 30.5 % (42.0-52.0) Mean Corpuscular Volume 90.3 fL (80.0-96.0) Mean Corpuscular Hemoglobin 28.7 pg (26.0-33.0) Mean Corpuscular Hemoglobin Concent 31.8 g/dL (32.0-36.0) Red Cell Distribution Width 22.5 % (11.5-14.5) Platelet Count 59 K/uL (150-450) Mean Platelet Volume 7.3 fL (7.2-11.1) Neutrophils (%) (Auto) % (39.4-72.5) Lymphocytes (%) (Auto) % (17.6-49.6) Monocytes (%) (Auto) % (4.1-12.4) Eosinophils (%) (Auto) % (0.4-6.7) Basophils (%) (Auto) % (0.3-1.4) Nucleated RBC Relative Count (auto) /100WBC Neutrophils # (Auto) K/uL (2.0-7.4) Lymphocytes # (Auto) K/uL (1.3-3.6) Monocytes # (Auto) K/uL (0.3-1.0) Eosinophils # (Auto) K/uL (0.0-0.5) Basophils # (Auto) K/uL (0.0-0.1) Nucleated RBC Absolute Count (auto) K/uL Neutrophils % (Manual) 90 % (39.4-72.5) Band Neutrophils % 2 % Lymphocytes % (Manual) 5 % (17.6-49.6) Monocytes % (Manual) 2 % (4.1-12.4) Eosinophils % (Manual) 1 % (0.4-6.7) Basophils % (Manual) 0 % (0.3-1.4) Platelet Estimate Low Hypochromasia 1 Macrocytosis 1+ Spherocytes 1+ Tear Drop Cells 1+ Ovalocytes 1+ Prothrombin Time 14.0 seconds (12.0-14.4) Prothromb Time International Ratio 1.07 Activated Partial Thromboplast Time 27 seconds (23-35) Glomerular Filtration Rate Calc 31.8 Calcium Level 9.7 mg/dl (8.4-10.2) Total Bilirubin 0.8 mg/dl (0.2-1.3) Aspartate Amino Transf (AST/SGOT) 19 U/L (0-35) Alanine Aminotransferase (ALT/SGPT) 26 U/L (0-56) Alkaline Phosphatase 48 U/L (0-126) Total Protein 6.4 g/dl (6.3-8.2) Albumin 3.6 g/dl (3.5-5.0) Lipase 39 U/L (23-300) Urine Color Annamarie Urine Clarity Slightly-cloudy Urine pH 6.0 pH (4.8-9.5) Urine Specific [place] 1.010 Urine Protein Trace mg/dL (NEGATIVE) Urine Glucose (UA) Negative mg/dL (NEGATIVE) Urine Ketones Negative mg/dL (NEGATIVE) Urine Blood Negative (NEGATIVE) Urine Nitrite Negative (NEGATIVE) Urine Bilirubin Negative (NEGATIVE) Urine Urobilinogen 0.2 mg/dL (0.2-1.9) Urine Leukocyte Esterase Small (NEGATIVE) Urine RBC 2 /HPF (0-2/HPF) Urine WBC 22 /HPF (0-5/HPF) Urine Squamous Epithelial Cells Few /LPF (</=FEW) Urine Bacteria Few /HPF (NONE-FEW) Urine Mucus None /HPF (NONE-FEW) Coagulation Test 12/29/17 14:45 Prothrombin Time 14.0 seconds Prothromb Time International Ratio 1.07 Activated Partial Thromboplast Time 27 seconds Urinalysis Test 12/29/17 16:20 Urine Color Annamarie Urine Clarity Slightly-cloudy Urine pH 6.0 pH (4.8-9.5) Urine Specific [place] 1.010 Urine Protein Trace mg/dL (NEGATIVE) Urine Glucose (UA) Negative mg/dL (NEGATIVE) Urine Ketones Negative mg/dL (NEGATIVE) Urine Blood Negative (NEGATIVE) Urine Nitrite Negative (NEGATIVE) Urine Bilirubin Negative (NEGATIVE) Urine Urobilinogen 0.2 mg/dL (0.2-1.9) Urine Leukocyte Esterase Small (NEGATIVE) Urine RBC 2 /HPF (0-2/HPF) Urine WBC 22 /HPF (0-5/HPF) Urine Squamous Epithelial Cells Few /LPF (</=FEW) Urine Bacteria Few /HPF (NONE-FEW) Urine Mucus None /HPF (NONE-FEW) EKG/Imaging EKG Interpretation Test Reason : WEAKNESS Blood Pressure : / mmHG Vent. Rate : 066 BPM Atrial Rate : 066 BPM P-R Int : 174 ms QRS Dur : 092 ms QT Int : 350 ms P-R-T Axes : 085 016 -57 degrees QTc Int : 366 ms Sinus rhythm with premature atrial complexes Voltage criteria for left ventricular hypertrophy Nonspecific ST and T wave abnormality Abnormal ECG ED Course/Re-evaluation ED Course Patient is an 87-year-old male here with history of ITP and a recent history of failure to thrive living by himself at home only with intermittent visiting nursing. Patient has been in the process of evaluation for his ITP and was seen here yesterday after being sent by oncology clinic due to significant dehydration. Initial IV access was failed and the patient declined further attempts so he was sent home only to return today with similar symptoms of dehydration and failure to thrive. I discussed the patient with the oncology service who updated me regarding the patient's findings and his history which has been complicated. Patient was in the process of evaluation for ITP and discussion of further axis with either a PICC line or a port which would require bone marrow biopsy. Patient again was found to have acute kidney injury likely prerenal in etiology. I discussed the patient with Dr. Markham who agreed to admission for hydration and further evaluation. Decision to Disposition Date: Dec 29, 2017 Decision to Disposition Time: 17:20 Depart Departure Latest Vital Signs Vital Signs Date Time Temp Pulse Resp B/P (MAP) Pulse Ox O2 Delivery O2 Flow Rate FiO2 12/29/17 17:00 62 26 116/64 (81) 89 12/29/17 14:07 97.6 Room Air Impression: Primary Impression: Dehydration Additional Impressions: Multiple contusions Acute kidney injury Condition: Improved Disposition: Admitted from ER Referrals: JOSSE LEWIS MD (PCP) Problem Qualifiers DEANNA HAMILTON DO Dec 29, 2017 14:04
[2017-12-29] MEDS ORDERED: FURO-45 PO (14:18)
[2017-12-29] MEDS ORDERED: TIMO5DRO3 OP (14:18)
[2017-12-29] MEDS ORDERED: LATA2.5D7 OP (14:18)
[2017-12-29] MEDS ORDERED: NS(*) 0.9% 1000 ML BAG 1,000 ML IV ONE (14:26)
--- NOTE | 2017-12-29 14:39 | EKG ---
FACILITY: [facility] PATIENT NAME: SUE RIOJAS : [id number] MR: [id number] V: [id number] EXAM DATE: ORDERING PHYSICIAN: DEANNA HAMILTON TECHNOLOGIST: JERI Fatima Reason : WEAKNESS Blood Pressure : / mmHG Vent. Rate : 066 BPM Atrial Rate : 066 BPM P-R Int : 174 ms QRS Dur : 092 ms QT Int : 350 ms P-R-T Axes : 085 016 -57 degrees QTc Int : 366 ms Sinus rhythm with premature atrial complexes Voltage criteria for left ventricular hypertrophy Nonspecific ST and T wave abnormality Abnormal ECG Confirmed by HOLLAND WEST ([id number]) on 12/29/2017 2:48:46 PM Referred By: Confirmed By:HOLLAND WEST
[2017-12-29 14:58] LABS: PLATELET COUNT, AUTOMATED 59 K/uL (150-450)
[2017-12-29 15:12] LABS: INR 1.07
[2017-12-29] MEDS ORDERED: DIPHTH/TETANUS/ACEL. PERTUSSIS IM ONLY ONE (15:35)
[2017-12-29 17:54] VITALS: BP 114/60
[2017-12-29] MEDS ORDERED: FISH1CAP23 PO (18:22)
[2017-12-29] MEDS ORDERED: NS(*) 0.9% 1000 ML BAG 1,000 ML IV PRN (18:57)
[2017-12-29] MEDS ORDERED: ACETAMINOPHEN 325 MG TAB PO PRN (19:00)
[2017-12-29] MEDS ORDERED: HYPROMELLOSE 0.4% LUB 15ML BTL OU PRN (19:10)
[2017-12-29] MEDS ORDERED: ALBUTEROL 8 GM INHALER INH PRN (19:10)
--- NOTE | 2017-12-29 19:36 | History & Physical ---
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 He has apparently sustained a few falls recently with a large skin tear on left forearm. He admits he has not been eating or drinking very well for "awhile". He denies any obvious fevers or chills. He denies any abdominal pain, diarrhea, nausea, or vomiting. He denies any dysuria or freque ncy. He does complain of some diffuse arthralgias which have been chronic for him. He was evaluated in the [facility] and ER over the past two days. He was found to be dehydrated with acute renal injury. It also appears he has an UTI. He was recommended for admission. History Problems: (1) Hyperglycemia Status: Chronic (2) Allergic rhinitis Status: Chronic (3) Glaucoma Status: Chronic (4) COPD (chronic obstructive pulmonary disease) Status: Chronic (5) Benign hypertension Status: Chronic (6) Hyperlipidemia Status: Chronic (7) Thrombocytopenia Status: Chronic (8) Peripheral vascular disease Status: Chronic (9) Gallstones Status: Chronic (10) Congestive heart failure Status: Chronic Home Meds Active Scripts Simvastatin (SIMVASTATIN) 10 Mg Tablet, 1 MG PO HS, #90 TAB 4 Refills Prov:JOSSE LEWIS MD 04/16/17 Pantoprazole Sodium (PANTOPRAZOLE SODIUM) 40 Mg Tablet.dr, 40 MG PO QDAY, #90 TAB.SR 4 Refills Prov:JOSSE LEWIS MD 11/07/16 Lisinopril (LISINOPRIL) 10 Mg Tablet, 10 MG PO QDAY, #90 TAB 3 Refills Prov:JOSSE LEWIS MD 04/22/16 Albuterol Sulfate 90 Mcg/Act (PROAIR HFA 90 MCG/ACT) 8.5 Gm Hfa.aer.ad, 1-2 PUFF IH 3-4XD, #1 INHALER 3 Refills Prov:JOSSE LEWIS MD 07/30/15 Oxygen (OXYGEN) Inha, 2 L INH QHS, #2 L Prov:JOSSE LEWIS MD 07/19/15 Acetazolamide (ACETAZOLAMIDE) 250 Mg Tablet, 1 TAB PO BID, #180 TAB 3 Refills Prov:JOSSE LEWIS MD 12/13/14 Reported Medications Fish Oil/Borage/Flax/Om3,6,9#1 (OMEGA 3-6-9 COMPLEX SOFTGEL) 400 Mg Capsule, 800 MG PO DAILY, CAPSULE 12/29/17 Timolol (BETIMOL) 5 Ml Drops, 1 DROP OP DAILY 12/29/17 Latanoprost (LATANOPROST) 2.5 Ml Drops, 2.5 ML OP HS 12/29/17 Furosemide (FUROSEMIDE) 20 Mg Tablet, 1 TAB PO DAILY, TAB 12/29/17 Prednisone (PREDNISONE) 50 Mg Tablet, 20 MG PO DAILY Pt to taper dose by 10mg per week. 12/14/17 Sodium Chloride (MAGDALENA-128) 15 Ml Soln, 15 ML OD AB 06/04/17 Carvedilol (CARVEDILOL) 12.5 Mg Tablet, 12.5 MG PO BID, #10 TAB 10/20/16 Prednisolone Acetate (PRED FORTE) 1 Ml Drops.susp, 1 DROP OP QDAY 12/13/14 Dorzolamide Hcl/Timolol Maleat (COSOPT EYE DROPS) 10 Ml Drops, 1 DROP OP QDAY 12/13/14 Brimonidine Tartrate (ALPHAGAN P) 5 Ml Drops, 1 DROP OP TID 12/13/14 Discontinued Reported Medications Tetrahydrozoline Hcl (EYE DROPS) 15 Ml Drops, 15 ML OP AB for LANTAPROST 06/04/17 Allergies: Coded Allergies: No Known Drug Allergies (Unverified , 12/29/17) Patient History: FH: colon cancer BROTHER FH: heart disease FATHER, Other Social/Family Hx Currently lives alone. His son, who provided some of his care, several years ago. Hx Smoking: Yes Smoking Status: Former Smoker Exposure to Second Hand Smoke?: No Caffeine Intake: Coffee Hx Alcohol Use: Yes Hx Substance Use Disorder: No Review of Systems Constitutional: Weight Loss; No Fever, No Chills Eyes: Loss of Vision ENT: No Hearing Loss Cardiovascular: No Chest Pain, No Palpitations Respiratory: No Shortness of Breath, No Cough Gastrointestinal: No Nausea, No Vomiting, No Diarrhea, No Abdominal Pain Genitourinary: No Dysuria Musculoskeletal: Pain, Impaired Mobility Exam Vital Signs Vital Signs Date Time Temp Pulse Resp B/P (MAP) Pulse Ox O2 Delivery O2 Flow Rate FiO2 12/29/17 17:54 97.8 59 14 114/60 (78) 90 Room Air General Appearance: Alert, Awake, Other (cachectic appearing) Neuro: Other (generalized weakness in virtually all groups/no obvious focal deficits) Eyes: Other (significant "cloudy" changes to left anterior chamber/right less/pupils essentiall nonreactive ) ENT: Other (oral mucosa/tongue very dry with dark coating) Neck: No Masses Cardiovascular: Other (Regular with occasional ectopy distant tones) Respiratory: Clear to Auscultation Chest: No Tenderness GI: Abd Soft and Non-Tender : No CVA Tenderness Lymph: No Adenopathy Musculoskeletal: Other (generalized weakness all groups) Extremities: Warm, Perfused Integumentary: Generalized Fragile Skin, Other (large skin tear left forearm) Psych: Other (He is oriented to person, place and partially to time) Medical Decision Making Data Points Result Diagram: 12/29/17 1445 12/29/17 1445 Item Value Date Time Lipase 39 U/L 12/29/17 1445 Albumin 3.6 g/dl 12/29/17 1445 Total Protein 6.4 g/dl 12/29/17 1445 Alkaline Phosphatase 48 U/L 12/29/17 1445 Alanine Aminotransferase (ALT/SGPT) 26 U/L 12/29/17 1445 Aspartate Amino Transf (AST/SGOT) 19 U/L 12/29/17 1445 Total Bilirubin 0.8 mg/dl 12/29/17 1445 Calcium Level 9.7 mg/dl 12/29/17 1445 Urine Mucus None /HPF 12/29/17 1620 Urine Bacteria Few /HPF 12/29/17 1620 Urine Squamous Epithelial Cells Few /LPF 12/29/17 1620 Urine WBC 22 /HPF 12/29/17 1620 Urine RBC 2 /HPF 12/29/17 1620 Urine Leukocyte Esterase Small 12/29/17 1620 Urine Bilirubin Negative 12/29/17 1620 Urine Urobilinogen 0.2 mg/dL 12/29/17 1620 Urine Nitrite Negative 12/29/17 1620 Urine Blood Negative 12/29/17 1620 Urine Ketones Negative mg/dL 12/29/17 1620 Urine Glucose (UA) Negative mg/dL 12/29/17 1620 Urine Protein Trace mg/dL 12/29/17 1620 Urine Specific [place] 1.010 12/29/17 1620 Urine pH 6.0 pH 12/29/17 1620 Urine Clarity Slightly-cloudy 12/29/17 1620 Urine Color Annamarie 12/29/17 1620 Activated Partial Thromboplast Time 27 seconds 12/29/17 1445 Prothromb Time International Ratio 1.07 12/29/17 1445 Prothrombin Time 14.0 seconds 12/29/17 1445 EKG / Imaging Imaging PATIENT NAME: Bert Chris : 1930 MR: [id number] V: [id number] EXAM DATE: ORDERING PHYSICIAN: LESLIE DAMIAN TECHNOLOGIST: [place] [facility] [place] Bert Chris : 1930 Visit/Account:[id number] Date of Sevice: 12/28/2017 Exam type: SHOULDER MIN 2 VIEWS LEFT History: Fell at home, left shoulder pain Comparison: None. Findings: Two views of the left shoulder demonstrate mild degenerative changes of the left glenohumeral joint. There is no evidence of acute fracture or dislocation. No evidence of a left AC joint separation. IMPRESSION: 1. Mild degenerative changes of the left glenohumeral joint although no evidence of acute fracture or dislocation involving the left shoulder Report Dictated By: Freya Reyes MD at 12/28/2017 3:51 PM Report E-Signed By: Freya Reyes MD at 12/28/2017 3:52 PM WSN:AMICIVN PATIENT NAME: Bert Chris : 1930 MR: [id number] V: [id number] EXAM DATE: ORDERING PHYSICIAN: LESLIE DAMIAN TECHNOLOGIST: [place] [facility] [place] Patient: Bert Chris : 1930 Visit/Account:[id number] Date of Sevice: 12/28/2017 Exam type: CHEST PA AND LAT History: Fell at home, left shoulder pain Comparison: October 08, 2016. Findings: There is hyperinflation of the lung mas. There is mild blunting left costophrenic angle although appears similar to the prior study. There is no evidence of focal infiltrates, pleural effusions or pulmonary edema. No evidence of a pneumothorax or pneumomediastinum. The cardiac silhouette is normal in size. IMPRESSION: 1. Mild hyperinflation lung mas although no evidence of acute pulmonary consolidation Report Dictated By: Freya Reyes MD at 12/28/2017 3:54 PM Report E-Signed By: Freya Reyes MD at 12/28/2017 3:55 PM WSN:FRIDA Assessment and Plan Problems: (1) Dehydration Status: Acute Assessment & Plan: Due to poor intake. Will give gentle IV fluid resuscitation. Watch closely. It appears he has not been able to care for himself at home. Will have social work see him as well. (2) Acute kidney injury Status: Acute Assessment & Plan: Due to dehydration. Will give IV fluids as noted. Watch UOP and labs. (3) Thrombocytopenia Status: Chronic Assessment & Plan: He is followed through [facility]. He has been on chronic steroids. Will give pulse of stress dose steroids with IV Solu-Cortef. Resume his oral prednisone in near future. (4) Benign hypertension Status: Chronic Assessment & Plan: Will hold his usual meds for now. Watch BPs closely. (5) Glaucoma Status: Chronic Assessment & Plan: He is essentially blind. He is able to see some shadows with his right eye. It appears he is going to need much more help. Will have social work see. (6) Pyuria Status: Acute Assessment & Plan: It appears he may have an UTI. Urine culture has been obtained. Will place on IV Rocephin empirically. Modify antibiotics based on culture results. Copies to: JOSSE LEWIS MD; JENNIFER YEE MD ; Venous Thromboembolism Antithrombotics Is Pt On Any Antithrombotics?: No Prophylaxis Tx Contraindicated Pharmacological Contraindicati: Low Platelet Count Exam Sepsis Risk: No Definite Risk HOLLAND WEST MD Dec 29, 2017 19:36
[2017-12-29] MEDS: cefTRIAXone 1 GM VIAL IVP SCH (20:00)
[2017-12-29] MEDS ORDERED: HYDROCORTISONE 100 MG/2 ML IVP ONE (20:00)
[2017-12-29] MEDS: LATANOPRO 0.005% OP SOLN 2.5ML OU SCH (21:56)
[2017-12-29] MEDS: acetaZOLAMIDE 250 MG TAB PO SCH (21:57)
[2017-12-29] MEDS: BRIMONIDINE TAR 0.15% 5 ML BTL OU SCH (21:58)
[2017-12-30] VITALS (11 sets, daily range): BP systolic 87–122; BP diastolic 47–69; Ht 175.3 cm; Wt 53.1 kg
[2017-12-30] MEDS: cefTRIAXone 1 GM VIAL IVP SCH (00:02)
[2017-12-30 07:01] LABS: PLATELET COUNT, AUTOMATED 43 K/uL (150-450)
[2017-12-30] MEDS ORDERED: HYDROCORTISONE 100 MG/2 ML IVP SCH (08:00)
[2017-12-30] MEDS: prednisoLONE ACE 1% OP 5ML BTL OU SCH (09:20)
[2017-12-30] MEDS: BRIMONIDINE TAR 0.15% 5 ML BTL OU SCH ×3 (09:21→22:22)
[2017-12-30] MEDS: TIMOLOL MAL 0.25% OP SOLN 5 ML OU SCH (09:22)
[2017-12-30] MEDS: DORZOLAMIDE/TIMOLOL 10 ML BTL OU SCH (09:22)
[2017-12-30] MEDS: acetaZOLAMIDE 250 MG TAB PO SCH ×2 (09:23→22:26)
--- NOTE | 2017-12-30 11:50 | Hospitalist Progress Note ---
Subjective Progress Notes Subjective This patient was admitted for renal failure and dehydration. He had no acute events overnight. Patient Complains of: Cardiovascular: No: Chest Pain Respiratory: No: Shortness of Breath Physical Exam Vital Signs Date Time Temp Pulse Resp B/P (MAP) Pulse Ox O2 Delivery O2 Flow Rate FiO2 12/30/17 08:06 94 Nasal Cannula 1.0 12/30/17 07:56 98.0 66 20 111/69 (83) Intake and Output 12/30/17 06:59 Intake Total 941 ml Balance 941 ml Intake Oral 100 ml IV Total 841 ml Cardiovascular: Regular Rate and Rhythm Respiratory: Clear to Auscultation Result Diagram: 12/30/1760712/30/17 06 Assessment and Plan Problems: (1) Acute kidney injury Status: Acute Assessment & Plan: He did have an elevated creatinine at admission. His levels did improve overnight with IV fluids. (2) Dehydration Status: Acute Assessment & Plan: Resolved with IV fluids. (3) Thrombocytopenia Status: Chronic Assessment & Plan: He is followed through [facility]. He has been on chronic treatment with prednisone 20mg. He is currently receiving stress dose hydrocortisone. (4) Benign hypertension Status: Chronic Assessment & Plan: He is on chronic treatment with carvedilol and lisinopril, which are both on hold secondary to hypotension. (5) Glaucoma Status: Chronic Assessment & Plan: He is essentially blind. He is able to see some shadows with his right eye. It appears he is going to need much more help. Will have social work see. He is on chronic treatment with dorzolamide and acetazolamide. (6) Pyuria Status: Acute Assessment & Plan: He did have small leukocytes in the urine, but is afebrile, his WBC is normal, and he is asymptomatic from a urinary standpoint. (7) Anemia Assessment & Plan: His Hgb did drop after receiving hydration overnight. His blood pressure is borderline and he has a history of cardiac and vascular disease. We are planning to transfuse him 2 units of red cells today. Exam Sepsis Risk: No Definite Risk MICHAEL CAPONE DO Dec 30, 2017 11:50
[2017-12-30] MEDS ORDERED: diphenhydrAMINE 25 MG CAP PO ONE (12:45)
[2017-12-30] MEDS ORDERED: ACETAMINOPHEN 325 MG TAB PO ONE (12:45)
[2017-12-30] MEDS ORDERED: NS 0.9% 500 ML BAG IV PRN (13:40)
[2017-12-30] MEDS: HYDROCORTISONE 100 MG/2 ML IVP SCH ×2 (13:59→23:27)
[2017-12-30] MEDS: LATANOPRO 0.005% OP SOLN 2.5ML OU SCH (21:40)
[2017-12-31] MEDS ORDERED: cefTRIAXone 1 GM VIAL IVP SCH
[2017-12-31 04:30] VITALS: BP 118/60
[2017-12-31 06:54] VITALS: BP 116/62
[2017-12-31 07:19] LABS: PLATELET COUNT, AUTOMATED 36 K/uL (150-450)
[2017-12-31] MEDS ORDERED: INFLUENZA VIRUS VAC 0.5ML SYR IM ONLY ONE (09:00)
[2017-12-31] MEDS: TIMOLOL MAL 0.25% OP SOLN 5 ML OU SCH (09:03)
[2017-12-31] MEDS: BRIMONIDINE TAR 0.15% 5 ML BTL OU SCH ×3 (09:03→21:00)
[2017-12-31] MEDS: DORZOLAMIDE/TIMOLOL 10 ML BTL OU SCH (09:03)
[2017-12-31] MEDS: prednisoLONE ACE 1% OP 5ML BTL OU SCH (09:03)
[2017-12-31] MEDS: acetaZOLAMIDE 250 MG TAB PO SCH ×2 (09:03→21:01)
[2017-12-31 11:44] VITALS: BP 118/72
[2017-12-31] MEDS: HYDROCORTISONE 100 MG/2 ML IVP SCH (11:51)
--- NOTE | 2017-12-31 14:18 | Medical Nutrition Therapy ---
Nutrition Anthropometrics Height (Inches): 69.00 Height (Calculated Centimeters: 175.313608 Weight (Pounds): 117 Weight (Calculated Kilograms): 53.070 BMI: 17.3 Lamberto Nutrition Score: Adequate Lamberto Nutrition Risk Score: 18 Dietary Referral Nutrition Risk Factors: Unplanned Loss >10lbs Nutrition Risk Comment: Physical Findings Physical Appearance: Underweight BMI<19 Skin Appearance Skin Appearance: Edema Edema Location Modifier: Edema Location: Type of Edema: Degree of Edema: Gastrointestinal Symptoms GI Symtoms: Appetite Changes Tube Present: Bowel Sounds: Recent Bowel Pattern: Stool Characteristics: Nutritional Diagnosis Nutritional Risk Acuity 1: Acute/ES Renal Nutritional Risk Acuity 2: Pr Appetite > 3d Nutritional Risk Acuity 3: Nutrit Anemia, Weight Loss Past Medical History: Hx of hyperglycemia, hyperliidemia, COPD, thrombocytopenia, benign HTN, PVD, CHF. Nutritional Acuity: 1-High Nutrition Diagnosis: Inadequate Food Intake Nutrition Etiology: Loss of Appetite Nutrition Problem/Etiology/Sym: Inadeqaute food intake, as related to loss of appetite, as evidenced by 117lbs, and underweight BMI of 17.3. Energy Requirement: 1500 (6588-6493 for wt gain Miff, 1.3) Protein Requirement: 63 (1.2g/kg) Fluid Requirement: 1590 (30ml/kcal) Diet Type: Diet as Tolerated VITALY/REG Nutrition Intervention: Cont diet as ordered, Encourage intake Diet Comment To RSA: RECOMMEND NUTR SUPPLEMENT Nutrition Monitoring & Eval RD Patient Assessment Time: [address] Assessment Type: RD Assessment Patient Nutrition Acuity: 1-High Follow Up Date: Jan 01, 2018 Nutritional Comment: 12/30. Pt admitted for dehydration, RADHA r/t dehydration, anemia and pyuria w/ possible UTI. Pt has reported unplanned weight loss and decreased appetite for "awhile". Observed weight on 06/04, 138lbs and pt currently weighs 117lbs. That is a 15% weight loss in 7 months, aprox. 3.5 each month. Reported pt met w/ cancer center the past two days, possible cancer dx which may be contributing to unplanned weight loss and poor appetite. Notable labs include: low Hgb 7.7, Hct 24.1, total protein 4.9, albumin 2.6, and elevated BUN 71 and Creatinine 1.6. Pt is 69in, 117lbs and underweight BMI of 17.3. Recommend 1500 kcal plus additonal 200 kcal for weight gain, total of 1700 kcal. Rec 63g protein each day. Encourage intake, and recommend nutritional supplement. Will cont to monitor. MANDI SCHROEDER Dec 30, 2017 13:55
[2017-12-31 15:36] VITALS: BP 118/62
--- NOTE | 2017-12-31 17:21 | General Surgery Consultation ---
History of Present Illness Requesting Physician Dr. Hurt, Med/Onc Dr. Wakefield, Hospitalist Reason for Consult Bone marrow biopsy Chief Complaint Weakness History of Present Illness 87yo male with long-standing thrombocytopenia and now with anemia. His Heme/Onc provider is concerned about a neoplasm or myelodysplastic disorder and so they have asked for a bone marrow biopsy. Mr. Chris has never before had a bone marrow biopsy. History Problems: (1) COPD (chronic obstructive pulmonary disease) Status: Chronic (2) Congestive heart failure Status: Chronic (3) Hyperglycemia Status: Chronic (4) Hyperlipidemia Status: Chronic (5) Peripheral vascular disease Status: Chronic (6) Allergic rhinitis Status: Chronic (7) Gallstones Status: Chronic (8) Benign hypertension Status: Chronic (9) Thrombocytopenia Status: Chronic (10) Glaucoma Status: Chronic Home Meds Active Scripts Simvastatin (SIMVASTATIN) 10 Mg Tablet, 1 MG PO HS, #90 TAB 4 Refills Prov:JOSSE LEWIS MD 04/16/17 Pantoprazole Sodium (PANTOPRAZOLE SODIUM) 40 Mg Tablet.dr, 40 MG PO QDAY, #90 TAB.SR 4 Refills Prov:JOSSE LEWIS MD 11/07/16 Lisinopril (LISINOPRIL) 10 Mg Tablet, 10 MG PO QDAY, #90 TAB 3 Refills Prov:JOSSE LEWIS MD 04/22/16 Albuterol Sulfate 90 Mcg/Act (PROAIR HFA 90 MCG/ACT) 8.5 Gm Hfa.aer.ad, 1-2 PUFF IH 3-4XD, #1 INHALER 3 Refills Prov:JOSSE LEWIS MD 07/30/15 Oxygen (OXYGEN) Inha, 2 L INH QHS, #2 L Prov:JOSSE LEWIS MD 07/19/15 Acetazolamide (ACETAZOLAMIDE) 250 Mg Tablet, 1 TAB PO BID, #180 TAB 3 Refills Prov:JOSSE LEWIS MD 12/13/14 Reported Medications Fish Oil/Borage/Flax/Om3,6,9#1 (OMEGA 3-6-9 COMPLEX SOFTGEL) 400 Mg Capsule, 800 MG PO DAILY, CAPSULE 12/29/17 Timolol (BETIMOL) 5 Ml Drops, 1 DROP OP DAILY 12/29/17 Latanoprost (LATANOPROST) 2.5 Ml Drops, 2.5 ML OP HS 12/29/17 Furosemide (FUROSEMIDE) 20 Mg Tablet, 1 TAB PO DAILY, TAB 12/29/17 Prednisone (PREDNISONE) 50 Mg Tablet, 20 MG PO DAILY Pt to taper dose by 10mg per week. 12/14/17 Sodium Chloride (MAGDALENA-128) 15 Ml Soln, 15 ML OD AB 06/04/17 Carvedilol (CARVEDILOL) 12.5 Mg Tablet, 12.5 MG PO BID, #10 TAB 10/20/16 Prednisolone Acetate (PRED FORTE) 1 Ml Drops.susp, 1 DROP OP BID 12/13/14 Dorzolamide Hcl/Timolol Maleat (COSOPT EYE DROPS) 10 Ml Drops, 1 DROP OP QDAY 12/13/14 Brimonidine Tartrate (ALPHAGAN P) 5 Ml Drops, 1 DROP OP TID 12/13/14 Discontinued Reported Medications Tetrahydrozoline Hcl (EYE DROPS) 15 Ml Drops, 15 ML OP AB for LANTAPROST 06/04/17 Allergies: Coded Allergies: No Known Drug Allergies (Unverified , 12/29/17) Family History: FH: colon cancer BROTHER FH: heart disease FATHER, Exam Vital Signs Vital Signs Date Time Temp Pulse Resp B/P (MAP) Pulse Ox O2 Delivery O2 Flow Rate FiO2 12/31/17 15:36 98.0 66 16 118/62 (80) 88 Room Air 12/31/17 06:54 0.5 General Appearance: Alert, Awake, No Acute Distress, Afebrile Medical Decision Making Data Points Result Diagram: 12/31/17 0542 12/30/17 0608 Assessment and Plan Problems: (1) Thrombocytopenia Status: Chronic Assessment & Plan: Will plan on bone marrow biopsy tomorrow. I have explained the procedure to the patient and his in great detail along with the alternatives and risks. They indicate their understanding of this discussion and their questions have been answered. They would like to proceed with this procedure tomorrow. (2) Anemia Status: Chronic Condition Stable Time Spent: < 30 min Venous Thromboembolism Antithrombotics Is Pt On Any Antithrombotics?: No Problem Qualifiers (1) Anemia: Anemia type: unspecified type Qualified Codes: D64.9 - Anemia, unspecified MICHAEL OLIVEROS MD Dec 31, 2017 17:21
--- NOTE | 2017-12-31 18:07 | Hospitalist Progress Note ---
Subjective Progress Notes Subjective 87M admitted for RADHA and dehydration. KENYA overnight, would like to try home with home health instead of recommended rehab. Patient Complains of: Neurological: No: Syncope, Confusion Cardiovascular: No: Chest Pain Respiratory: No: Cough Gastrointestinal: No Nausea Genitourinary: No Dysuria Physical Exam Vital Signs Date Time Temp Pulse Resp B/P (MAP) Pulse Ox O2 Delivery O2 Flow Rate FiO2 12/31/17 15:36 98.0 66 16 118/62 (80) 88 Room Air 12/31/17 06:54 0.5 Intake and Output 12/31/17 07:00 Intake Total 1979 ml Balance 1979 ml Intake Oral 782 ml Blood Product 1197 ml # Voids 2 # Bowel Movements 1 General Appearance: Alert, Awake, No Acute Distress Neuro: No Gross deficits Eyes: Other (blindness) ENT: Normal Cardiovascular: Normal Rhythm & Peripheral Pulses Respiratory: No Respiratory Distress GI: Soft and Non-Tender Extremities: Soft and Non Tender, Warm, Pulses, Perfused Integumentary: Skin Intact without Lesion / Mass Psych: Appropriate Mood & Affect Result Diagram: 12/31/17 0542 12/30/17 0608 Assessment and Plan Problems: (1) Pancytopenia Assessment & Plan: Now with low platelets and hemoglobin, abnormalities of CT scan 12.14.2017 which are concerning for possible malignancy (lung parenchyma and pancreas) and infiltrative disease of marrow, unintentional weight loss. Bone marrow biopsy 01.01.2018 and follow up with Dr Barbour one week after discharge. Will coordinate home health. (2) Acute kidney injury Status: Acute Assessment & Plan: Resolved. He did have an elevated creatinine at admission. His levels did improve overnight with IV fluids. (3) Dehydration Status: Acute Assessment & Plan: Resolved with IV fluids. (4) Thrombocytopenia Status: Chronic Assessment & Plan: He is followed through [facility]. He has been on chronic treatment with prednisone 20mg. Will resume prednisone 20mg, discussed with Dr Barbour, concern rising that this could be something other than ITP. There are abnormalities of pancreas and biliary system as well as asymmetric pleural thickening. Will proceed with bone marrow biopsy tomorrow. (5) Benign hypertension Status: Chronic Assessment & Plan: He is on chronic treatment with carvedilol and lisinopril, which are both on hold secondary to hypotension. (6) Glaucoma Status: Chronic Assessment & Plan: He is essentially blind. He is able to see some shadows with his right eye. It appears he is going to need much more help. Will have social work see. He is on chronic treatment with dorzolamide and acetazolamide. (7) Pyuria Status: Acute Assessment & Plan: He did have small leukocytes in the urine, but is afebrile, his WBC is normal, and he is asymptomatic from a urinary standpoint. (8) Anemia Status: Chronic Assessment & Plan: His Hgb did drop after receiving hydration overnight. His blood pressure is borderline and he has a history of cardiac and vascular disease. We are planning to transfuse him 2 units of red cells today. Exam Sepsis Risk: No Definite Risk Problem Qualifiers (1) Anemia: Anemia type: unspecified type Qualified Codes: D64.9 - Anemia, unspecified LOREE JOHNSONPRAVIN DO Dec 31, 2017 18:07
[2017-12-31 20:30] VITALS: BP 140/62
[2017-12-31] MEDS: LATANOPRO 0.005% OP SOLN 2.5ML OU SCH (21:01)
[2018-01-01 02:23] VITALS: BP 124/70
[2018-01-01 07:45] VITALS: BP 136/94
[2018-01-01] MEDS: predniSONE 20 MG TAB PO SCH (09:02)
[2018-01-01] MEDS: TIMOLOL MAL 0.25% OP SOLN 5 ML OU SCH (09:03)
[2018-01-01] MEDS: prednisoLONE ACE 1% OP 5ML BTL OU SCH (09:03)
[2018-01-01] MEDS: BRIMONIDINE TAR 0.15% 5 ML BTL OU SCH ×3 (09:04→20:42)
[2018-01-01] MEDS: DORZOLAMIDE/TIMOLOL 10 ML BTL OU SCH (09:04)
[2018-01-01] MEDS: acetaZOLAMIDE 250 MG TAB PO SCH ×2 (09:08→20:41)
[2018-01-01 11:17] VITALS: BP 144/80
[2018-01-01] MEDS ORDERED: HEPARIN FLSH (PORT) 500 UN/5ML ONE (11:39)
[2018-01-01 11:50] LABS: PLATELET COUNT, AUTOMATED 36 K/uL (150-450)
--- NOTE | 2018-01-01 12:05 | Medical Nutrition Therapy ---
Nutrition Anthropometrics Height (Inches): 69.00 Height (Calculated Centimeters: 175.343212 Weight (Pounds): 117 Weight (Calculated Kilograms): 53.070 BMI: 17.3 Lamberto Nutrition Score: Adequate Lamberto Nutrition Risk Score: 19 Dietary Referral Nutrition Risk Factors: Unplanned Loss >10lbs Nutrition Risk Comment: Physical Findings Physical Appearance: Underweight BMI<19 Skin Appearance Skin Appearance: Edema Edema Location Modifier: Edema Location: Type of Edema: Degree of Edema: Gastrointestinal Symptoms GI Symtoms: Appetite Changes Tube Present: Bowel Sounds: Recent Bowel Pattern: Stool Characteristics: Nutritional Diagnosis Nutritional Risk Acuity 2: Pr Appetite > 3d Nutritional Risk Acuity 3: Nutrit Anemia, Weight Loss Past Medical History: Hx of hyperglycemia, hyperliidemia, COPD, thrombocytopenia, benign HTN, PVD, CHF. Nutritional Acuity: 2-Moderate Nutrition Diagnosis: Inadequate Food Intake Nutrition Etiology: Loss of Appetite Nutrition Problem/Etiology/Sym: Inadeqaute food intake, as related to loss of appetite, as evidenced by 117lbs, and underweight BMI of 17.3. Energy Requirement: 1500 (6194-0611 for wt gain Miff, 1.3) Protein Requirement: 63 (1.2g/kg) Fluid Requirement: 1590 (30ml/kcal) Diet Type: Diet as Tolerated VITALY/REG Nutrition Intervention: Cont diet as ordered, Encourage intake Diet Comment To RSA: RECOMMEND NUTR SUPPLEMENT Nutrition Monitoring & Eval RD Patient Assessment Time: [address] Assessment Type: RD Re-Assessment Patient Nutrition Acuity: 2-Moderate Follow Up Date: Jan 04, 2018 Nutritional Comment: 12/30. Pt admitted for dehydration, RADHA r/t dehydration, anemia and pyuria w/ possible UTI. Pt has reported unplanned weight loss and decreased appetite for "awhile". Observed weight on 06/04, 138lbs and pt currently weighs 117lbs. That is a 15% weight loss in 7 months, aprox. 3.5 each month. Reported pt met w/ cancer center the past two days, possible cancer dx which may be contributing to unplanned weight loss and poor appetite. Notable labs include: low Hgb 7.7, Hct 24.1, total protein 4.9, albumin 2.6, and elevated BUN 71 and Creatinine 1.6. Pt is 69in, 117lbs and underweight BMI of 17.3. Recommend 1500 kcal plus additonal 200 kcal for weight gain, total of 1700 kcal. Rec 63g protein each day. Encourage intake, and recommend nutritional supplement. Will cont to monitor. MR 01/01. Pt is now being treated for Pancytopenia, will complete a bone marrow biopsy today. Dehydration and RADHA are resolved. Pt cont on VITALY, consuming 25-100% of small and regular sized meals. No new labs available. Will cont to monitor. MR NULLMANDI Jan 01, 2018 09:07
[2018-01-01] MEDS: NS(*) 0.9% 1000 ML BAG 1,000 ML IV PRN ×2 (12:31→20:41)
--- NOTE | 2018-01-01 13:11 | Hospitalist Progress Note ---
Subjective Progress Notes Subjective Per staff and the patient's daughter, he has not been eating or drinking well. The patient admits that since he lives alone and doesn't see well, he doesn't prepare meals and eat like he should. He does get one Wheels on Meals meal daily. He has lost significant weight and was significantly dehydrated on admission. Physical Exam Vital Signs Date Time Temp Pulse Resp B/P (MAP) Pulse Ox O2 Delivery O2 Flow Rate FiO2 01/01/18 11:17 97.8 86 14 144/80 (101) 91 Nasal Cannula 0.5 Intake and Output 01/01/18 06:59 Intake Total 800 ml Balance 800 ml Intake Oral 800 ml # Voids 4 # Bowel Movements 2 General Appearance: Alert, Awake, No Acute Distress Neuro: No Gross deficits Eyes: PERRLA ENT: Other (Mucous membranes dry.) Cardiovascular: Regular Rate and Rhythm Respiratory: Clear to Auscultation GI: Soft and Non-Tender Extremities: Warm, Perfused, Other (No edema.) Integumentary: Other (Scattered bruises over most of his body, excluding his face.) Psych: Appropriate Mood & Affect Result Diagram: 01/01/18 1100 01/01/18 1100 Assessment and Plan Problems: (1) Pancytopenia Assessment & Plan: Now with low platelets and hemoglobin, abnormalities of CT scan 12.14.2017 which are concerning for possible malignancy (lung parenchyma and pancreas) and infiltrative disease of marrow, unintentional weight loss. Bone marrow biopsy today. The patient has been evaluated for ECF and they would like to reevaluate him on Thursday after his MRCP which is scheduled for tomorrow. He agrees to ECF next week for PT/OT if appropriate. (2) Acute kidney injury Status: Acute Assessment & Plan: Improved. He did have an elevated creatinine at admission. His levels did improve IV fluids. His creatinine remains elevated at 1.4 today. Will hydrate overnight prior to MRCP tomorrow. Recheck labs in am. (3) Dehydration Status: Acute Assessment & Plan: Improved with IV fluids. As above. (4) Thrombocytopenia Status: Chronic Assessment & Plan: He is followed through [facility]. He has been on chronic treatment with prednisone 20mg. Will resume prednisone 20mg, discussed with Dr Barbour, concern rising that this could be something other than ITP. There are abnormalities of pancreas and biliary system as well as asymmetric pleural thickening. Bone marrow biopsy today. (5) Benign hypertension Status: Chronic Assessment & Plan: He is on chronic treatment with carvedilol and lisinopril, which are both on hold secondary to hypotension. (6) Glaucoma Status: Chronic Assessment & Plan: He is essentially blind. He is able to see some shadows with his right eye. It appears he is going to need much more help as he lives alone. SW is seeing. For now will plan on ECF reevaluation on Thursday. If his MRCP shows pancreatic malignancy, will need to discuss with the patient and his daughter and make a plan as he will likely not do well at home alone. He is on chronic treatment with dorzolamide and acetazolamide. (7) Pyuria Status: Acute Assessment & Plan: He did have small leukocytes in the urine, but is afebrile, his WBC is normal, and he is asymptomatic from a urinary standpoint. Urine cx shows contamination. (8) Anemia Status: Chronic Assessment & Plan: His Hgb did drop after receiving hydration. His blood pressure was borderline and he has a history of cardiac and vascular disease. He was transfused with 2 units of red cells and his hgb has remained stable. (9) Pancreatic mass Status: Acute Assessment & Plan: New. MRCP ordered for am. Will hydrate overnight. (10) Pleural thickening Status: Acute Assessment & Plan: Radiology states malignancy should be ruled out. Time Spent on Plan of Care: < 30 min Exam Sepsis Risk: No Definite Risk Problem Qualifiers (1) Anemia: Anemia type: unspecified type Qualified Codes: D64.9 - Anemia, unspecified IRIS WEST MD Jan 01, 2018 13:11
--- NOTE | 2018-01-01 13:38 | Medical Nutrition Therapy ---
Nutrition Anthropometrics Height (Inches): 69.00 Height (Calculated Centimeters: 175.864235 Weight (Pounds): 117 Weight (Calculated Kilograms): 53.070 BMI: 17.3 Lamberto Nutrition Score: Adequate Lamberto Nutrition Risk Score: 19 Dietary Referral Nutrition Risk Factors: Unplanned Loss >10lbs Nutrition Risk Comment: Nutritional Diagnosis Nutritional Risk Acuity 2: Pr Appetite > 3d Nutritional Risk Acuity 3: Nutrit Anemia, Weight Loss Past Medical History: Hx of hyperglycemia, hyperliidemia, COPD, thrombocytopenia, benign HTN, PVD, CHF. Nutritional Acuity: 2-Moderate Nutrition Diagnosis: Inadequate Food Intake Nutrition Etiology: Loss of Appetite Nutrition Problem/Etiology/Sym: Inadeqaute food intake, as related to loss of appetite, as evidenced by 117lbs, and underweight BMI of 17.3. Energy Requirement: 1500 (1561-3069 for wt gain Miff, 1.3) Protein Requirement: 63 (1.2g/kg) Fluid Requirement: 1590 (30ml/kcal) Diet Type: Diet as Tolerated VITALY/REG Nutrition Intervention: Cont diet as ordered, Encourage intake Food Likes: chocolate ensure and boost Additional Diet Restrictions: BRING NUTR SUPPLMENT WHEN PICKING UP TRAY FOR PT TO DRINK BETWEEN MEALS Diet Comment To RSA: RECOMMEND NUTR SUPPLEMENT Nutrition Monitoring & Eval Nutrition Goals: Eat 75-100% Meal, Drink > 1500 cc/day Nutrition Follow-Up: Fair Intake, Poor Intake RD Patient Assessment Time: [address] Assessment Type: RD Re-Assessment Patient Nutrition Acuity: 2-Moderate Follow Up Date: Jan 04, 2018 Nutritional Comment: 12/30. Pt admitted for dehydration, RADHA r/t dehydration, anemia and pyuria w/ possible UTI. Pt has reported unplanned weight loss and decreased appetite for "awhile". Observed weight on 06/04, 138lbs and pt currently weighs 117lbs. That is a 15% weight loss in 7 months, aprox. 3.5 each month. Reported pt met w/ cancer center the past two days, possible cancer dx which may be contributing to unplanned weight loss and poor appetite. Notable labs include: low Hgb 7.7, Hct 24.1, total protein 4.9, albumin 2.6, and elevated BUN 71 and Creatinine 1.6. Pt is 69in, 117lbs and underweight BMI of 17.3. Recommend 1500 kcal plus additonal 200 kcal for weight gain, total of 1700 kcal. Rec 63g protein each day. Encourage intake, and recommend nutritional supplement. Will cont to monitor. MR 01/01. Pt is now being treated for Pancytopenia, will complete a bone marrow biopsy today. Dehydration and RADHA are resolved. Pt cont on VITALY, consuming 25-100% of small and regular sized meals. No new labs available. Will cont to monitor. SYLVIA AWAN Jan 01, 2018 13:38
--- NOTE | 2018-01-01 14:47 | RADIOLOGY IMAGING REPORT ---
[place] [facility] [place] NAME: Bert Chris : 1930 MR: [id number] V: [id number] EXAM DATE: ORDERING PHYSICIAN: IRIS WEST TECHNOLOGIST: [facility] Patient: Bert Chris : 1930 Visit/Account:[id number] Date of Sevice: 01/01/2018 Exam type: CHEST SINGLE AP History: Cough phlegm Comparison: December 28, 2017. Findings: Again noted is hyperexpansion the lung mas. Mild blunting of left costophrenic angle again appear s stable. There is no evidence of focal infiltrates or overt pulmonary edema. Cardiac silhouette ap pears normal. IMPRESSION: 1. Mild hyperexpansion lung mas although no evidence of acute pulmonary consolidation Report Dictated By: Freya Reyes MD at 01/01/2018 2:42 PM Report E-Signed By: Freya Reyes MD at 01/01/2018 2:43 PM WSN:[email or web address]
[2018-01-01 15:26] VITALS: BP 131/77
[2018-01-01 20:00] VITALS: BP 133/86
[2018-01-01] MEDS: LATANOPRO 0.005% OP SOLN 2.5ML OU SCH (20:42)
[2018-01-01] MEDS ORDERED: NS(*) 0.9% 1000 ML BAG 1,000 ML IV PRN (20:57)
[2018-01-01] MEDS ORDERED: FUROSEMIDE 20 MG/2 ML VIAL IVP ONE (21:30)
[2018-01-01 23:01] VITALS: BP 128/66
[2018-01-02 03:14] VITALS: BP 127/74
[2018-01-02 07:55] LABS: PLATELET COUNT, AUTOMATED 32 K/uL (150-450)
[2018-01-02 08:38] VITALS: BP 150/79
[2018-01-02] MEDS: predniSONE 20 MG TAB PO SCH (08:42)
[2018-01-02] MEDS: acetaZOLAMIDE 250 MG TAB PO SCH ×2 (08:42→21:19)
[2018-01-02] MEDS: prednisoLONE ACE 1% OP 5ML BTL OU SCH (08:44)
[2018-01-02] MEDS: DORZOLAMIDE/TIMOLOL 10 ML BTL OU SCH (08:46)
[2018-01-02] MEDS: BRIMONIDINE TAR 0.15% 5 ML BTL OU SCH ×3 (08:46→21:19)
[2018-01-02] MEDS: TIMOLOL MAL 0.25% OP SOLN 5 ML OU SCH (08:46)
--- NOTE | 2018-01-02 11:18 | Hospitalist Progress Note ---
Subjective Progress Notes Subjective This patient was admitted for renal failure and dehydration. He had no acute events overnight. Patient Complains of: Cardiovascular: No: Chest Pain Respiratory: No: Shortness of Breath Physical Exam Vital Signs Date Time Temp Pulse Resp B/P (MAP) Pulse Ox O2 Delivery O2 Flow Rate FiO2 01/02/18 08:38 98.7 95 12 150/79 (102) 93 Nasal Cannula 1.0 Intake and Output 01/02/18 07:00 Intake Total 1980 ml Balance 1980 ml Intake Oral 980 ml IV Total 1000 ml # Voids 5 # Bowel Movements 1 Cardiovascular: Regular Rate and Rhythm Respiratory: Clear to Auscultation Result Diagram: 01/02/1863701/02/18637 Assessment and Plan Problems: (1) Acute kidney injury Status: Acute Assessment & Plan: Improved. He did have an elevated creatinine at admission. His levels did improve IV fluids. His creatinine remains elevated at 1.4 today. Will hydrate overnight prior to MRCP tomorrow. Recheck labs in am. (2) Dehydration Status: Acute Assessment & Plan: Improved with IV fluids. As above. (3) Pleural thickening Status: Acute Assessment & Plan: Radiology states malignancy should be ruled out. (4) Pancreatic mass Status: Acute Assessment & Plan: A pancreatic mass was noted on a recent CT scan. An MRCP is ordered for this weekend. (5) Pancytopenia Assessment & Plan: He did have a bone marrow biopsy performed by Dr. Vallejo. Results are currently pending. (6) Thrombocytopenia Status: Chronic Assessment & Plan: He is followed through [facility]. He has been on chronic treatment with prednisone 20mg. We were initially treating him with stress dose hydrocortisone, but have now placed him back on his chronic dose of prednisone. (7) Anemia Status: Chronic Assessment & Plan: He received 2 units of red cells on 12/30. His Hgb has since been stable. (8) Benign hypertension Status: Chronic Assessment & Plan: He is on chronic treatment with carvedilol and lisinopril, which are both on hold secondary to hypotension. (9) Glaucoma Status: Chronic Assessment & Plan: He is essentially blind. He is able to see some shadows with his right eye. It appears he is going to need much more help as he lives alone. SW is seeing. For now will plan on ECF reevaluation on Thursday. If his MRCP shows pancreatic malignancy, will need to discuss with the patient and his daughter and make a plan as he will likely not do well at home alone. He is on chronic treatment with dorzolamide and acetazolamide. (10) Pyuria Status: Acute Assessment & Plan: He did have small leukocytes in the urine, but is afebrile, his WBC is normal, and he is asymptomatic from a urinary standpoint. Urine cx shows contamination. Exam Sepsis Risk: No Definite Risk Problem Qualifiers (1) Anemia: Anemia type: unspecified type Qualified Codes: D64.9 - Anemia, unspecified MICHAEL CAPONE DO Jan 02, 2018 11:18
[2018-01-02 11:27] VITALS: BP 139/69
[2018-01-02 14:27] VITALS: BP 142/84
[2018-01-02 19:41] VITALS: BP 136/78
[2018-01-02] MEDS: LATANOPRO 0.005% OP SOLN 2.5ML OU SCH (21:19)
[2018-01-03 04:52] VITALS: BP 134/84
[2018-01-03 07:28] VITALS: BP 151/90
[2018-01-03] MEDS: predniSONE 20 MG TAB PO SCH (11:29)
[2018-01-03] MEDS: acetaZOLAMIDE 250 MG TAB PO SCH ×2 (11:29→20:51)
[2018-01-03] MEDS: DORZOLAMIDE/TIMOLOL 10 ML BTL OU SCH (11:30)
[2018-01-03] MEDS: BRIMONIDINE TAR 0.15% 5 ML BTL OU SCH ×3 (11:30→20:52)
[2018-01-03] MEDS: prednisoLONE ACE 1% OP 5ML BTL OU SCH (11:31)
[2018-01-03] MEDS: TIMOLOL MAL 0.25% OP SOLN 5 ML OU SCH (11:31)
[2018-01-03] MEDS ORDERED: POTASSIUM CHL 10 MEQ TABCR PO ONE (16:30)
--- NOTE | 2018-01-03 16:31 | RADIOLOGY IMAGING REPORT ---
[place] [facility] [place] Bert [place] : 1930 MR: [id number] V: [id number] EXAM DATE: ORDERING PHYSICIAN: IRIS WEST TECHNOLOGIST: Location: [facility] - [place] Patient: Bert Chris : 1930 Visit/Account:[id number] Date of Sevice: 01/02/2018 MRI CHOLANGIOPANCREAT W/WO CON INDICATION: Pancreatic mass. Biliary dilatation. COMPARISON: CT of abdomen pelvis, noncontrast, on 12/16/2017. FINDINGS: Multiplanar, multisequence images of the abdomen were obtained prior to and after intrave nous contrast 15 mL MultiHance. No reaction to contrast noted. 3-D reconstructions of the biliary sys tem. The gallbladder is contracted with multiple stones which are small within the lumen without other foc al gallbladder abnormality. The common bile duct is dilated up to 12 mm. There are multiple small sto ne seen in the distal common bile duct. There is narrowing of the distal duct at the pancreatic head. There is mild intrahepatic biliary dilatation. The head/uncinate process of the pancreas shows ill-defined enlargement and multiple small cystic madhav nges. This is somewhat ill-defined but measures at least 4.7 cm. After enhancement there is linear en hancement throughout this area which may be enhancement of the septa of the cystic changes or the enh ancement of the pancreatic tissue. Pancreatic duct is visualized but does not appear to be dilated. A djacent to the duct at the junction of the distal body and tail of the pancreas is a 1.5 cm cystic ty pe lesion. This does not appear to show any significant enhancement. The pancreas shows no discrete o ther focal abnormality. No peripancreatic abnormality. The left lobe liver shows a nonenhancing 1.1 cm cyst. There are couple tiny cysts seen in the right l obe of liver. The liver shows no other focal abnormality. The spleen is enlarged measuring 16.4 cm an d the craniocaudad dimension without discrete focal abnormality besides a tiny cyst. The adrenal glan ds are normal. The right kidney is mildly atrophic does show couple cysts, largest measuring 1.2 cm. The left kidney shows a couple cysts with the largest measuring 4.7 cm. The kidneys show no other dis crete focal abnormality. The visualized gastrointestinal tract is within normal limits. The infrarenal abdominal aorta again s hows mild aneurysmal dilatation measuring 3.1 x 2.8 cm without acute abnormality with atherosclerotic calcific changes similar to the CT scan. No periaortic inflammation. No free fluid, fluid collection s or areas of inflammation. No appreciable adenopathy. Small right pleural effusion. Surrounding soft tissues are unremarkable. IMPRESSION: 1. Choledocholithiasis and cholelithiasis. No discrete other changes to the gallbladder. The distal c ommon bile duct does show narrowing. There is no discrete cause identified. However at the pancreatic head there appears to be enlarged cystic changes. 2. The pancreatic head appears to show an enlarged cystic type changes which is somewhat ill-defined. This may be pancreatic cysts however cannot exclude a cystic lesion. However, postcontrast images th ere is no discrete enhancing nodule with mild fine linear enhancement which could be pancreatic tissu e versus mild enhancement of the mckeon if they are cysts. 3. The cystic lesion seen at the junction of the distal body and tail of the pancreas is again visual ized and shows no appreciable enhancement. This is adjacent to the pancreatic duct which does not raymundo ear to be dilated. This could be a focal dilatation the duct, pancreatic cyst or a cystic lesion. 4. The images are somewhat degraded by the motion artifact especially on the axial images. It would b e beneficial perform a 3-[address] scan of the abdomen and pelvis without and with contrast further evaluate and reevaluate the pancreatic abnormalities. 5. Small right pleural effusion. 6. Other chronic stable findings as above. Report Dictated By: Bert Tobias at 01/03/2018 4:12 PM Report E-Signed By: Bert Tobias at 01/03/2018 4:27 M WSN:[id number]
--- NOTE | 2018-01-03 16:36 | Hospitalist Progress Note ---
Subjective Progress Notes Subjective The patient states his bone marrow bx site is a bit sore but otherwise denies pain. Physical Exam Vital Signs Date Time Temp Pulse Resp B/P (MAP) Pulse Ox O2 Delivery O2 Flow Rate FiO2 01/03/18 07:28 93 Nasal Cannula 3.0 01/03/18 07:28 97.7 96 18 151/90 (110) Intake and Output 01/03/18 06:59 Intake Total 440 ml Balance 440 ml Intake Oral 440 ml # Voids 2 # Bowel Movements 1 General Appearance: Alert, Awake, No Acute Distress Eyes: Other (L sclera opaque. ) Cardiovascular: Regular Rate and Rhythm GI: Soft and Non-Tender Extremities: Warm, Perfused Integumentary: Generalized Fragile Skin Psych: Appropriate Mood & Affect Result Diagram: 01/02/1863701/02/18637 Assessment and Plan Problems: (1) Acute kidney injury Status: Acute Assessment & Plan: Improved. He did have an elevated creatinine at admission. His levels did improve IV fluids. His creatinine remains slightly elevated at 1.3 today. Will push oral fluids and recheck labs in am. (2) Dehydration Status: Acute Assessment & Plan: Improved with IV fluids. As above. (3) Pleural thickening Status: Acute Assessment & Plan: Radiology states malignancy should be ruled out. (4) Pancreatic mass Status: Acute Assessment & Plan: A pancreatic mass was noted on a recent CT scan. An MRCP was performed earlier. Radiology report pending. (5) Pancytopenia Assessment & Plan: He did have a bone marrow biopsy performed by Dr. Vallejo. Results are currently pending. (6) Thrombocytopenia Status: Chronic Assessment & Plan: He is followed through [facility]. He has been on chronic treatment with prednisone 20mg. We were initially treating him with stress dose hydrocortisone, but have now placed him back on his chronic dose of prednisone. (7) Anemia Status: Chronic Assessment & Plan: He received 2 units of red cells on 12/30. His Hgb did drop a bit today. Will continue to monitor. Await bone marrow bx results. (8) Benign hypertension Status: Chronic Assessment & Plan: He is on chronic treatment with carvedilol and lisinopril, which are both on hold secondary to hypotension. (9) Glaucoma Status: Chronic Assessment & Plan: He is essentially blind. He is able to see some shadows with his right eye. It appears he is going to need much more help as he lives alone. SW is seeing. For now will plan on ECF reevaluation on Thursday. If his MRCP shows pancreatic malignancy, will need to discuss with the patient and his daughter and make a plan as he will likely not do well at home alone. He is on chronic treatment with dorzolamide and acetazolamide. (10) Pyuria Status: Acute Assessment & Plan: He did have small leukocytes in the urine, but is afebrile, his WBC is normal, and he is asymptomatic from a urinary standpoint. Urine cx shows contamination. Time Spent on Plan of Care: < 30 min Exam Sepsis Risk: No Definite Risk Problem Qualifiers (1) Anemia: Anemia type: unspecified type Qualified Codes: D64.9 - Anemia, unspecified IRIS WEST MD Jan 03, 2018 16:36
[2018-01-03] MEDS: POTASSIUM CHL 10 MEQ TABCR PO SCH (17:00)
[2018-01-03 20:46] VITALS: BP 136/88
[2018-01-03] MEDS: LATANOPRO 0.005% OP SOLN 2.5ML OU SCH (20:51)
[2018-01-04 04:03] VITALS: BP 168/92
[2018-01-04 06:38] LABS: PLATELET COUNT, AUTOMATED 28 K/uL (150-450)
[2018-01-04 08:23] VITALS: BP 123/95
[2018-01-04] MEDS: TIMOLOL MAL 0.25% OP SOLN 5 ML OU SCH (08:33)
[2018-01-04] MEDS: prednisoLONE ACE 1% OP 5ML BTL OU SCH (08:33)
[2018-01-04] MEDS: DORZOLAMIDE/TIMOLOL 10 ML BTL OU SCH (08:33)
[2018-01-04] MEDS: BRIMONIDINE TAR 0.15% 5 ML BTL OU SCH (08:34)
[2018-01-04] MEDS: acetaZOLAMIDE 250 MG TAB PO SCH (08:34)
[2018-01-04] MEDS: predniSONE 20 MG TAB PO SCH (08:34)
[2018-01-04] MEDS: POTASSIUM CHL 10 MEQ TABCR PO SCH (08:34)
[2018-01-04 12:00] VITALS: BP 135/86
[2018-01-04] MEDS ORDERED: ALBU8.5H IH (12:45)
--- NOTE | 2018-01-04 13:03 | Hospitalist Depart ---
Discharge Summary Reason for Hosp/Final Diag: (1) Acute kidney injury Status: Acute Hospital Course & Plan: Improved. He did have an elevated creatinine at admission. His levels did improve with IV fluids. His creatinine remains slightly elevated at 1.2 today. His baseline appears to be about 1.5. Will continue to hold lisinopril and furosemide and defer to his PCP about restarting. BMP on 01/07. (2) Dehydration Status: Acute Hospital Course & Plan: Improved with IV fluids. As above. (3) Pleural thickening Status: Acute Hospital Course & Plan: Radiology states malignancy should be ruled out. (4) Pancreatic mass Status: Acute Hospital Course & Plan: A pancreatic mass was noted on a recent CT scan. An MRCP was performed which was showed cystic type changes at the head, distal body and tail of the pancreas. A follow up CT in 3-6 months is recommended. (5) Pancytopenia Hospital Course & Plan: He did have a bone marrow biopsy performed by Dr. Vallejo. Results are currently pending. (6) Thrombocytopenia Status: Chronic Hospital Course & Plan: He is followed through [facility]. He has been on chronic treatment with prednisone 20mg. We were initially treating him with stress dose hydrocortisone, but have now placed him back on his chronic dose of prednisone. He will continue the taper as scheduled. (7) Anemia Status: Chronic Hospital Course & Plan: He received 2 units of red cells on 12/30. His Hgb has been stable since the transfusion. Await bone marrow bx results. CBC on 01/07. (8) Benign hypertension Status: Chronic Hospital Course & Plan: He is on chronic treatment with carvedilol and lisinopril, which were both on hold secondary to hypotension. Restarting Carvedilol. (9) Glaucoma Status: Chronic Hospital Course & Plan: He is essentially blind. He is able to see some shadows with his right eye. He is going to go to the [facility] to work with therapy for strengthening and ADL's. He is on chronic treatment with dorzolamide and acetazolamide. (10) Pyuria Status: Acute Hospital Course & Plan: He did have small leukocytes in the urine, but is afebrile, his WBC is normal, and he is asymptomatic from a urinary standpoint. Urine cx shows contamination. Departure Weight (Pounds): 117 Result Diagram: 01/04/18 0527 01/04/18 0527 Item Value Date Time Hemoglobin 9.5 g/dL L 12/28/17 1336 Hemoglobin 9.7 g/dL L 12/29/17 1445 Neutrophils % (Manual) 90 % H 12/29/17 1445 Band Neutrophils % 2 % 12/29/17 1445 Lymphocytes % (Manual) 5 % L 12/29/17 1445 Neutrophils (%) (Auto) 94.0 % H 12/28/17 1336 Lymphocytes (%) (Auto) 4.5 % L 12/28/17 1336 Monocytes (%) (Auto) 1.0 % L 12/28/17 1336 White Blood Count 10.3 k/uL 12/28/17 1336 White Blood Count 10.5 k/uL 12/29/17 1445 Platelet Count 67 K/uL L 12/28/17 1336 Platelet Count 59 K/uL L 12/29/17 1445 Platelet Count 43 K/uL *L 12/30/17 0608 Platelet Count 36 K/uL *L 12/31/17 0542 Platelet Count 36 K/uL *L 01/01/18 1100 Platelet Count 32 K/uL *L 01/02/18 0638 Platelet Count 28 K/uL *L 01/04/18 0527 Neutrophils % (Manual) 71 % 01/04/18 0527 Band Neutrophils % 17 % 01/04/18 0527 Lymphocytes % (Manual) 5 % L 01/04/18 0527 Neutrophils % (Manual) 88 % H 01/01/18 1100 Band Neutrophils % 3 % 01/01/18 1100 Lymphocytes % (Manual) 3 % L 01/01/18 1100 Atypical Lymphocytes % 0 % 01/01/18 1100 White Blood Count 6.9 k/uL 12/30/17 0608 White Blood Count 7.5 k/uL 12/31/17 0542 White Blood Count 8.5 k/uL 01/01/18 1100 White Blood Count 6.5 k/uL 01/02/18 0638 White Blood Count 5.7 k/uL 01/04/18 0527 Hemoglobin 10.0 g/dL L 01/04/18 0527 Hemoglobin 10.1 g/dL L 01/02/18 0638 Hemoglobin 11.0 g/dL L 01/01/18 1100 Hemoglobin 10.2 g/dL L # 12/31/17 0542 Hemoglobin 7.7 g/dL *L 12/30/17 0608 Prothromb Time International Ratio 1.07 12/29/17 1445 Creatinine 2.10 mg/dl H 12/28/17 1336 Total Bilirubin 0.7 mg/dl 12/28/17 1336 Aspartate Amino Transf (AST/SGOT) 25 U/L 12/28/17 1336 Alanine Aminotransferase (ALT/SGPT) 24 U/L 12/28/17 1336 Alkaline Phosphatase 45 U/L 12/28/17 1336 Lactate Dehydrogenase 918 U/L H 12/28/17 1336 Blood Urea Nitrogen 79 mg/dl H 12/28/17 1336 Sodium Level 144 mmol/L 12/28/17 1336 Potassium Level 4.1 mmol/L 12/28/17 1336 Carbon Dioxide Level 25 mmol/L 12/28/17 1336 Chloride Level 105 mmol/L 12/28/17 1336 Blood Urea Nitrogen 77 mg/dl H 12/29/17 1445 Creatinine 2.00 mg/dl H 12/29/17 1445 Blood Urea Nitrogen 71 mg/dl H 12/30/17 0608 Creatinine 1.60 mg/dl H 12/30/17 0608 Blood Urea Nitrogen 44 mg/dl H 01/01/18 1100 Creatinine 1.40 mg/dl H 01/01/18 1100 Blood Urea Nitrogen 35 mg/dl H 01/02/18 0638 Creatinine 1.30 mg/dl H 01/02/18 0638 Blood Urea Nitrogen 28 mg/dl H 01/04/18 0527 Creatinine 1.20 mg/dl 01/04/18 0527 Urine RBC 2 /HPF 12/29/17 1620 Urine WBC 22 /HPF 12/29/17 1620 Urine Squamous Epithelial Cells Few /LPF 12/29/17 1620 Urine Leukocyte Esterase Small 12/29/17 1620 SPEC #: [id number] ARLIN: 12/29/17 STATUS: COMP REQ #: [id number] RECD: 12/29/[address]: DEANNA HAMILTON DO SOURCE: [facility]MS ENTR: 12/29/17-[address]: JOSSE LEWIS MD SPDESC: ORDERED: CULT URINE Procedure Result Verified ---- -------- URINE CULTURE Final 12/31/17-1117 CONTAMINATED URINE: QUANTITY: 25-50,000 COL/ML MULTIPLE COLONY TYPES PRESENT (CONSISTENT WITH NORMAL GENITAL/SKIN LIBERTY) NONE PREDOMINANT INDICATES CONTAMINATION SUGGEST COLLECTION OF A NEW SPECIMEN Imaging 01/02/18 MRCP - 1. Choledocholithiasis and cholelithiasis. No discrete other changes to the gallbladder. The distal common bile duct does show narrowing. There is no discrete cause identified. However at the pancreatic head there appears to be enlarged cystic changes. 2. The pancreatic head appears to show an enlarged cystic type changes which is somewhat ill-defined. This may be pancreatic cysts however cannot exclude a cystic lesion. However, postcontrast images there is no discrete enhancing nodule with mild fine linear enhancement which could be pancreatic tissue versus mild enhancement of the mckeon if they are cysts. 3. The cystic lesion seen at the junction of the distal body and tail of the pancreas is again visualized and shows no appreciable enhancement. This is adjacent to the pancreatic duct which does not appear to be dilated. This could be a focal dilatation the duct, pancreatic cyst or a cystic lesion. 4. The images are somewhat degraded by the motion artifact especially on the axial images. It would be beneficial perform a 3-[address] scan of the abdomen and pelvis without and with contrast further evaluate and reevaluate the pancreatic abnormalities. 5. Small right pleural effusion. 6. Other chronic stable findings as above. 01/01/18 CXR - 1. Mild hyperexpansion lung mas although no evidence of acute pulmonary consolidation EKG Vent. Rate : 066 BPM Atrial Rate : 066 BPM P-R Int : 174 ms QRS Dur : 092 ms QT Int : 350 ms P-R-T Axes : 085 016 -57 degrees QTc Int : 366 ms Sinus rhythm with premature atrial complexes Voltage criteria for left ventricular hypertrophy Nonspecific ST and T wave abnormality Abnormal ECG Confirmed by HOLLAND WEST ([id number]) on 12/29/2017 2:48:46 PM Condition: Improved Discharge: Half-Way PT/OT Follow Up For: PT For Strengthening, OT For ADL's Discharge Code Status: DNR, DNI Discharge Instructions Home Meds Active Scripts Albuterol Sulfate 90 Mcg/Act (PROAIR HFA 90 MCG/ACT) 8.5 Gm Hfa.aer.ad, 1-2 PUFF IH 3-4XD PRN for SHORTNESS OF BREATH, #1 INHALER 3 Refills Prov:MERY CLARK MD 01/04/18 Simvastatin (SIMVASTATIN) 10 Mg Tablet, 1 MG PO HS, #90 TAB 4 Refills Prov:JOSSE LEWIS MD 04/16/17 Pantoprazole Sodium (PANTOPRAZOLE SODIUM) 40 Mg Tablet.dr, 40 MG PO QDAY, #90 TAB.SR 4 Refills Prov:JOSSE LEWIS MD 11/07/16 Oxygen (OXYGEN) Inha, 2 L INH QHS, #2 L Prov:JOSSE LEWIS MD 07/19/15 Acetazolamide (ACETAZOLAMIDE) 250 Mg Tablet, 1 TAB PO BID, #180 TAB 3 Refills Prov:JOSSE LEWIS MD 12/13/14 Reported Medications Fish Oil/Borage/Flax/Om3,6,9#1 (OMEGA 3-6-9 COMPLEX SOFTGEL) 400 Mg Capsule, 800 MG PO DAILY, CAPSULE 12/29/17 Timolol (BETIMOL) 5 Ml Drops, 1 DROP OP DAILY 12/29/17 Latanoprost (LATANOPROST) 2.5 Ml Drops, 2.5 ML OP HS 12/29/17 Prednisone (PREDNISONE) 50 Mg Tablet, 20 MG PO DAILY Pt to taper dose by 10mg per week. 12/14/17 Carvedilol (CARVEDILOL) 12.5 Mg Tablet, 12.5 MG PO BID, #10 TAB 10/20/16 Prednisolone Acetate (PRED FORTE) 1 Ml Drops.susp, 1 DROP OP BID 12/13/14 Dorzolamide Hcl/Timolol Maleat (COSOPT EYE DROPS) 10 Ml Drops, 1 DROP OP QDAY 12/13/14 Brimonidine Tartrate (ALPHAGAN P) 5 Ml Drops, 1 DROP OP TID 12/13/14 Discontinued Reported Medications Furosemide (FUROSEMIDE) 20 Mg Tablet, 1 TAB PO DAILY, TAB 12/29/17 Sodium Chloride (MAGDALENA-128) 15 Ml Soln, 15 ML OD AB 06/04/17 Tetrahydrozoline Hcl (EYE DROPS) 15 Ml Drops, 15 ML OP AB for LANTAPROST 06/04/17 Discontinued Scripts Lisinopril (LISINOPRIL) 10 Mg Tablet, 10 MG PO QDAY, #90 TAB 3 Refills Prov:JOSSE LEWIS MD 04/22/16 Diet: No Added Salt (KAREN) Special Instructions: BMP/CBC/LDH on 01/07 with the results going to Drs. Hall and Blu Copies to: JOSSE LEWIS MD; JENNIFER YEE MD ; Venous Thromboembolism Antithrombotics Is Pt On Any Antithrombotics?: No Problem Qualifiers (1) Anemia: Anemia type: unspecified type Qualified Codes: D64.9 - Anemia, unspecified MERY CLARK MD Jan 04, 2018 13:02
== END 2018-01-04 15:45 | DRG 683 ==
LOC: ER 14:25 → MED 17:13
PROVIDERS: ADMIT Internal Medicine; ATTEND Internal Medicine
PROC: 30233N1 Transfusion of Nonautologous Red Blood Cells into Peripheral Vein, Percutaneous Approach (ICD-10-PCS; principal; 2017-12-30)
DX: N17.9 Acute kidney failure, unspecified (principal); K86.2 Cyst of pancreas; D61.818 Other pancytopenia; Z68.1 Body mass index [BMI] 19.9 or less, adult; E86.0 Dehydration; D69.6 Thrombocytopenia, unspecified; H40.9 Unspecified glaucoma; H54.3 Unqualified visual loss, both eyes; D64.9 Anemia, unspecified; R63.4 Abnormal weight loss; J44.9 Chronic obstructive pulmonary disease, unspecified; I11.0 Hypertensive heart disease with heart failure; I50.9 Heart failure, unspecified; E78.5 Hyperlipidemia, unspecified; R73.9 Hyperglycemia, unspecified; I73.9 Peripheral vascular disease, unspecified; K80.80 Other cholelithiasis without obstruction; J30.9 Allergic rhinitis, unspecified; Z79.52 Long term (current) use of systemic steroids
CPT/HCPCS: 36415; 36430; 71045; 71046; 74183; 81001; 82040; 82247; 82310; 82374; 82378; 82435; 82565; 82947; 83615; 83690; 83735; 84075; 84132; 84153; 84155; 84295; 84450; 84460; 84520; 85025; 85610; 85730; 86301; 86850; 86900; 86901; 86920; 87088; 88184; 88185; 90715; 93005; 97163; 97165; 99281; A9577; J0696; J1642; J1720; J1940; J3535; J7030; J7040; J7050; J7512; P9016; Q0163

== ENCOUNTER → 2018-01-07 | Outpatient (REF) | payer MEDICARE ==
[2017-12-30 10:00] VITALS: BMI 17.3
[~2018-01-07] MED LIST changes: +FISH1CAP23 PO; +FURO-45 PO; +LATA2.5D7 OP; +TIMO5DRO3 OP
== END ==
LOC: ZZLCC 18:21
PROVIDERS: ATTEND Family Medicine
DX: D61.818 Other pancytopenia (principal); D69.6 Thrombocytopenia, unspecified; N17.9 Acute kidney failure, unspecified
CPT/HCPCS: 82310; 82374; 82435; 82565; 82947; 83615; 84132; 84295; 84520; 85027

== ENCOUNTER 2018-01-11 10:30 | Outpatient (RCR) | payer MEDICARE ==
[2017-10-28 13:27] VITALS: BP 128/54
[2017-10-28 13:59] LABS: PLATELET COUNT, AUTOMATED 22 K/uL (150-450)
--- NOTE | 2017-10-28 14:40 | Oncology Note ---
[facility] Patient History: FH: colon cancer BROTHER Social/Occupational History Social History: Social History This is a 86 Yr old White male, he is W / and has [] Children Hx Smoking: Yes Smoking Status: Former Smoker Exposure to Second Hand Smoke?: No When Quit Tobacco?: QUIT IN 1991 Allergies & Medications Allergies: Coded Allergies: No Known Drug Allergies (Unverified , 10/08/16) Home Meds Active Scripts Simvastatin (SIMVASTATIN) 10 Mg Tablet, 1 MG PO HS, #90 TAB 4 Refills Prov:JOSSE LEWIS MD 04/16/17 Pantoprazole Sodium (PANTOPRAZOLE SODIUM) 40 Mg Tablet.dr, 40 MG PO QDAY, #90 TAB.SR 4 Refills Prov:JOSSE LEWIS MD 11/07/16 Lisinopril (LISINOPRIL) 10 Mg Tablet, 10 MG PO QDAY, #90 TAB 3 Refills Prov:JOSSE LEWIS MD 04/22/16 Albuterol Sulfate 90 Mcg/Act (PROAIR HFA 90 MCG/ACT) 8.5 Gm Hfa.aer.ad, 1-2 PUFF IH 3-4XD, #1 INHALER 3 Refills Prov:JOSSE LEWIS MD 07/30/15 Oxygen (OXYGEN) Inha, 2 L INH QHS, #2 L Prov:JOSSE LEWIS MD 07/19/15 Acetazolamide (ACETAZOLAMIDE) 250 Mg Tablet, 1 TAB PO BID, #180 TAB 3 Refills Prov:JOSSE LEWIS MD 12/13/14 Reported Medications Tetrahydrozoline Hcl (EYE DROPS) 15 Ml Drops, 15 ML OP AB for LANTAPROST 06/04/17 Sodium Chloride (MAGDALENA-128) 15 Ml Soln, 15 ML OD AB 06/04/17 Carvedilol (CARVEDILOL) 12.5 Mg Tablet, 12.5 MG PO BID, #10 TAB 10/20/16 Prednisolone Acetate (PRED FORTE) 1 Ml Drops.susp, 1 DROP OP QDAY 12/13/14 Dorzolamide Hcl/Timolol Maleat (COSOPT EYE DROPS) 10 Ml Drops, 1 DROP OP QDAY 12/13/14 Brimonidine Tartrate (ALPHAGAN P) 5 Ml Drops, 1 DROP OP TID 12/13/14 PRIMARY CARE PHYSICIAN: Baron Sheikh Service DATE: 10/28/2017 @ [address] Vargas 10/15/2017 ACCOMPANIED BY: Self, Home health aid dropped patient off Chief complaint: F/u on Labs Thombocytopenia DIAGNOSIS Thrombocytopenia secondary to ITP- plt today is 22,000 HPI Mr. 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 Patient is seen and examined at the Cancer center with aplatelt count of 22,000. s/p platelet transfusion on . Patient is hemodynamically stable, he reports feeling in his usual state of health, besides some minor bruising on upper bilateral extremities. He informs me that he did not feel any different with his last platelet transfusion. Patient denies any excessive bleeding, he denies any cardiac type chest pain, he denies fevers, chills night sweats. Patient is vision impaired Due to glaucoma who has had few surgeries in [place] left eye worse than the right eye. Recently was seen by Doctor Livier Coles in [place], and his visio is worsening. on Physical exam patient looks emaciated, a left neck supraclavicular mole is noted, with centric raised bump. Patient weight remains same as of last month in the 132lbs. Significant past medical history of glaucoma; hyperlipidemia; history of skin cancer; hypertension; peripheral vascular disease; history of gallstones removal. Of note initial workup done in August 2015. B12 was normal; Serum folate and red cell folate were normal. MMA/ methylmalonic acid was high at 0.5. which was corrected after B12 supplementation 1000mcg Im q Month. Living conditions: Patient lives alone but he has a home health aide help twice a week Diagnostic tests & Reports Reviewed on [facility] [employer] PAST MEDICAL HISTORY 1. Glaucoma. 2. Hyperlipidemia. 3. Hypertension. 4. Peripheral vascular disease. 5. Depression. 6. History of skin cancer. PAST SURGICAL HISTORY 1. Trabeculectomy two times before. 2. Removal of skin cancer in the past. 3. Tonsillectomy as a child. 4. Eye surgery for glaucoma and cataract. SOCIAL HISTORY The patient is a . He has one daughter. 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 He quit tobacco in 1990 after one pack a day for forty years. He has one drink per week roughly. Denies any abuse of illicit drugs. FAMILY HISTORY Brother had colon cancer in his eighties. CURRENT MEDICATIONS 1. Alphagan 3 drops per day, both eyes. 2. Pred-Forte eye drops, 1 drop per day. 3. Timolol eye drops, 1 drop per day. 4. Dorzolamide eye drops, 1 drop daily. 5. Lisinopril 10 mg once daily. 6. Simvastatin 10 mg once daily. 7. Acetazolamide 250 mg tablet b.i.d. 8. Lisinopril/hydrochlorothiazide 10/12.5 mg half tablet q.a.m. 9. Vitamin D3 at 2000 units daily. PREVENTIVE: MEDICATIONS: ALLERGIES: No known drug allergies. REVIEW OF SYSTEMS CONSTITUTION: denies fevers, sweats, appetite ok, reports fatigue EYES: +Vision impaired ENT: no mouth soreness, trouble swallowing, neck masses RESPIRATORY: Denies pleuritic pain, dyspnea, wheezing, coughing CARDIOVASCULAR: Denies cardiac type chest pain, palpitations, leg edema GI: denies trouble swallowing, indigestion, abdominal pain, diarrhea, constipation, : No blood in the urine, no urinary urgency/frequency, no dysuria,, no black stools MUSCULOSKELETAL: +limited ROM, no back pain NEURO: denies headaches, dizziness, neuropathy, focal weakness SKIN: bruising, HEMATOLOGY: +bruise easily PSYCH: denies mood changes, depression, anxiety PHYSICAL EXAM Vital Signs Temperature: 97.8 Pulse: 64 BP Systolic: 128 BP Diastolic: 54 Respiratory Rate: 16 O2 SAT: 94% RA O2 Delivery: Height (inches) Weight lb: 133 pounds Weight oz: Weight Kg (J Carlos): Pain: 1 PERFORMANCE STATUS: ECOG 3-Capable of only limited self-care; GENERAL: pleasant conversant gentleman , very well versed, with visual limitations due to glaucoma, in no apparent distress ORAL: mucosa moist without lesions, pharynx not injected EYES: no icterus, no pale conjunctivae, Glaucoma, cloudy appearance lenses, Left eye worse than right eye. NECK: supple, no masses, no palpable lymph nodes LUNGS: diminished bilaterally, breathing, non-labored CVS: regular rate, rhythm, nl s1, s2, no murmurs ABD: normal bowel sounds, soft non tender, non-distended, no hepatomegaly, no splenomegaly, no masses EXTREMITIES: no edema, no cyanosis MUSCULOSKELETAL: unsteady gait NEURO: alert, appropriate, motor grossly normal, sensory grossly non focal, and cranial nerves grossly intact NODES: no cervical, supraclavicular, axillary, inguinal adenopathy SKIN: minimal ecchymosis, no open wounds, no itchiness.+ Left neck mole with raised center dime size approximately. PSYCH: normal mood and affect, good judgment and insight. Assessment & Plan 1. 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 platelet count is 22K , his baseline is in the 30-40K. The patient had a high methylmalonic acid assay at 0.5 and for this reason the patient received vitamin B12 supplements in the form of 1000 mcg intramuscularly. Despite that fact, his methylmalonic acid normalized at 0.15, but his platelets are still low today. The patient was advised to be careful about the use of aspirin, which is needed because of his vascular disease and bleeding because of the low platelets. The patient was advised to contact us for any excessive bruising or bleeding. 2. Vitamin B12 deficiency biochemically with high methylmalonic acid assay at 0.5. The patient received vitamin B12 supplements in the form of shots 1000 mcg and his methylmalonic acid assay normalized at 0.15 in the past. 3. Vision impaired. History of glaucoma, and multiple trabeculectomy x4 by Dr. Coles in [place]. patient informs me he recently saw Dr. Coles. 4. History of skin cancer, to the left ear. Left neck mole with raised center dime size approximately. Dermatology consult referral today. 5. Nutrition deficit. patient looks emaciated, he is on the meals on wheels program. he reports to eat what he receives. Patient instructed to drink Boost three times per day. vs once per day. PLAN 1. Patient to return to Clinic on Thursday for labs, type and cross, We may Transfuse 2 units of Leukreduced Platelets 2. CBC to be checked monthly. 3. Re-check B12, folate, MMA on 10/30/17 4. Continue B12 at 1000 mcg subcutaneously every month, until Discontinued by MD/JEZ 5. Continue follow up. 6. The patient to contact us for any new concerns or complaints. 7. Bleeding and Fall precaution in the setting of low platelet 8. Patient to Go to ER if any active bleeding, SOB, chest or abdominal pain. 9. The patient to return in three months with CBC. 10. Recommend Patient to f/u with Dermatology. significant PMH of skin cancer 11. Patient to refrain from taking Aspirin -Education, patient instructed to go to ER immediately and or call Clinic if any active bleeding, excessive bruising, Shortness of Breath, Temp >/=100.4, fevers, chills, cardiac type chest pain, bleeding, excessive bruising, headaches , blurry vision, dizziness, abdominal pain, difficulty swallowing, and pain unrelieved by medication. TIME SPENT: 25 minutes > 20 minutes includes but not limited to discussion, counselling and co-ordination~ of care. Discussion with other health care providers, record review, review of lab work, diagnostic tests. Plan discussed extensively with patient. All the questions answered today. Thank you for the opportunity to be involved in the care of Mr. Aries Noel. Billing Level: Return visit 4 BASIL WHITE, ONC Oct 28, 2017 14:40
[2017-10-30] VITALS (11 sets, daily range): BP systolic 87–144; BP diastolic 55–71
[2017-10-30 10:49] LABS: PLATELET COUNT, AUTOMATED 14 K/uL (150-450)
[2017-10-30 20:55] LABS: PLATELET COUNT, AUTOMATED 35 K/uL (150-450)
[2017-11-04 13:32] VITALS: BP 155/76
--- NOTE | 2017-11-04 16:51 | Oncology Note ---
[facility] Patient History: FH: colon cancer BROTHER Social/Occupational History Social History: Social History This is a 86 Yr old White male, he is W / and has [] Children Hx Smoking: Yes Smoking Status: Former Smoker Exposure to Second Hand Smoke?: No When Quit Tobacco?: QUIT IN 1991 Allergies & Medications Allergies: Coded Allergies: No Known Drug Allergies (Unverified , 10/08/16) Home Meds Active Scripts Simvastatin (SIMVASTATIN) 10 Mg Tablet, 1 MG PO HS, #90 TAB 4 Refills Prov:JOSSE LEWIS MD 04/16/17 Pantoprazole Sodium (PANTOPRAZOLE SODIUM) 40 Mg Tablet.dr, 40 MG PO QDAY, #90 TAB.SR 4 Refills Prov:JOSSE LEWIS MD 11/07/16 Lisinopril (LISINOPRIL) 10 Mg Tablet, 10 MG PO QDAY, #90 TAB 3 Refills Prov:JOSSE LEWIS MD 04/22/16 Albuterol Sulfate 90 Mcg/Act (PROAIR HFA 90 MCG/ACT) 8.5 Gm Hfa.aer.ad, 1-2 PUFF IH 3-4XD, #1 INHALER 3 Refills Prov:JOSSE LEWIS MD 07/30/15 Oxygen (OXYGEN) Inha, 2 L INH QHS, #2 L Prov:JOSSE LEWIS MD 07/19/15 Acetazolamide (ACETAZOLAMIDE) 250 Mg Tablet, 1 TAB PO BID, #180 TAB 3 Refills Prov:JOSSE LEWIS MD 12/13/14 Reported Medications Tetrahydrozoline Hcl (EYE DROPS) 15 Ml Drops, 15 ML OP AB for LANTAPROST 06/04/17 Sodium Chloride (MAGDALENA-128) 15 Ml Soln, 15 ML OD AB 06/04/17 Carvedilol (CARVEDILOL) 12.5 Mg Tablet, 12.5 MG PO BID, #10 TAB 10/20/16 Prednisolone Acetate (PRED FORTE) 1 Ml Drops.susp, 1 DROP OP QDAY 12/13/14 Dorzolamide Hcl/Timolol Maleat (COSOPT EYE DROPS) 10 Ml Drops, 1 DROP OP QDAY 12/13/14 Brimonidine Tartrate (ALPHAGAN P) 5 Ml Drops, 1 DROP OP TID 12/13/14 Date f Service 11/04/2017 Time: 13:30PM HPI Mr. 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 Patient is seen and examined at the Cancer center, hemodynamically stable, he is very upset in regards to the transfussion reaction that provoked profound hypotension on 10/30. He reports feeling good today, bilateral upper extremities bruising present, Patient denies any active bleeding, he denies any cardiac type chest pain, he denies fevers, chills night sweats. Patient is vision impaired Due to glaucoma who has had few surgeries in [place] left eye worse than the right eye. Patient continues to maintain weight 132.9 pounds. since last visit. He complains about the meals on wheel choices. he has increased intake of protein shake, Boost TID. Significant past medical history of glaucoma; hyperlipidemia ; history of skin cancer; hypertension; peripheral vascular disease; history of gallstones removal. off note, initial workup done in August 2015. B12 was normal; Serum folate and red cell folate were normal. MMA/ methylmalonic acid was high at 0.5. which was corrected after B12 supplementation 1000mcg Im qMonth. Platelet associated antibodies, direct and indirect, were negative at initial presentation of disease.. Living conditions: Patient lives alone but he has a home health aide help twice a week Diagnostic tests & Reports Reviewed on [employer] PAST MEDICAL HISTORY 1. Glaucoma. 2. Hyperlipidemia. 3. Hypertension. 4. Peripheral vascular disease. 5. Depression. 6. History of skin cancer. PAST SURGICAL HISTORY 1. Trabeculectomy two times before. 2. Removal of skin cancer in the past. 3. Tonsillectomy as a child. 4. Eye surgery for glaucoma and cataract. SOCIAL HISTORY The patient is a . He has one daughter. 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 He quit tobacco in 1990 after one pack a day for forty years. He has one drink per week roughly. Denies any abuse of illicit drugs. FAMILY HISTORY Brother had colon cancer in his eighties. CURRENT MEDICATIONS 1. Alphagan 3 drops per day, both eyes. 2. Pred-Forte eye drops, 1 drop per day. 3. Timolol eye drops, 1 drop per day. 4. Dorzolamide eye drops, 1 drop daily. 5. Lisinopril 10 mg once daily. 6. Simvastatin 10 mg once daily. 7. Acetazolamide 250 mg tablet b.i.d. 8. Lisinopril/hydrochlorothiazide 10/12.5 mg half tablet q.a.m. 9. Vitamin D3 at 2000 units daily. 10. trial of prednisone 60mg Po x5 days. PREVENTIVE: MEDICATIONS: ALLERGIES: No known drug allergies. REVIEW OF SYSTEMS CONSTITUTION: denies fevers, sweats, appetite ok, reports fatigue EYES: +Vision impaired ENT: no mouth soreness, trouble swallowing, neck masses RESPIRATORY: Denies pleuritic pain, dyspnea, wheezing, coughing CARDIOVASCULAR: Denies cardiac type chest pain, palpitations, leg edema GI: denies trouble swallowing, indigestion, abdominal pain, diarrhea, constipation, : No blood in the urine, no urinary urgency/frequency, no dysuria,, no black stools MUSCULOSKELETAL: +limited ROM, no back pain NEURO: denies headaches, dizziness, neuropathy, focal weakness SKIN: bruising, HEMATOLOGY: +bruise easily PSYCH: denies mood changes, depression, anxiety PHYSICAL EXAM Vital Signs Temperature: 97.8 Pulse: 77 BP Systolic: 155 BP Diastolic: 76 Respiratory Rate: 16 O2 SAT: 93% RA O2 Delivery: Height (inches) Weight lb: 133 pounds Weight oz: Weight Kg (J Carlos): Pain: 1 PERFORMANCE STATUS: ECOG 3-Capable of only limited self-care; GENERAL: pleasant conversant gentleman , very well versed, with visual limitations due to glaucoma, in no apparent distress ORAL: mucosa moist without lesions, pharynx not injected EYES: no icterus, no pale conjunctivae, Glaucoma, cloudy appearance lenses, Left eye worse than right eye. NECK: supple, no masses, no palpable lymph nodes LUNGS: diminished bilaterally, breathing, non-labored CVS: regular rate, rhythm, nl s1, s2, no murmurs ABD: normal bowel sounds, soft non tender, non-distended, no hepatomegaly, no splenomegaly, no masses EXTREMITIES: no edema, no cyanosis MUSCULOSKELETAL: unsteady gait NEURO: alert, appropriate, motor grossly normal, sensory grossly non focal, and cranial nerves grossly intact NODES: no cervical, supraclavicular, axillary, inguinal adenopathy SKIN: + Ecchymosis, no open wounds, no itchiness. PSYCH: normal mood and affect, good judgment and insight. Upset about platelet transfusion reaction ASSESSMENT DIAGNOSTIC DATA CBC,CMP within acceptable parameters except as per HPI. 1. 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 platelet count is 35K , s/p platelet transfusion on 10/30/17. Platelet were 14K on 10/30/2017. with excessive bruising. His baseline is in the 30-40K. Highest platelet count has been 50k after 2 units transfusion, and lowest platelet count has been 14K. initial workup done in August 2015. B12 was normal; Serum folate and red cell folate were normal. MMA/ methylmalonic acid was high at 0.5. which was corrected after B12 supplementation 1000mcg Im qMonth. Platelet associated antibodies, direct and indirect, were negative.The patient had a high methylmalonic acid assay at 0.5 and for this reason the patient received vitamin B12 supplements in the form of 1000 mcg intramuscularly. Despite that fact, his methylmalonic acid normalized at 0.15, but his platelets are still low today. 2. Biochemical Vitamin B12 deficiency . Vit B12 today is 1500; MMA is 0.21; folate is 12.3. The patient receives vitamin B12 supplements shots 1000 mcg monthly. We will continue B12 shots Q 4-6 weeks. 3. Acute HTR Transfusion Reaction Platelet on 10/30/2017. which occurred within minutes of initiating transfusion patient developed profound hypotension. Will recheck platelet antibodies. Transfusion reaction intervention were Immediately implemented per Hospital protocol. transfusion was stopped, and unit sent to blood bank. per Nursing staff report, patient was quickly stabilized, there were no chills, fever, flank pain, no back pain, no oozing from venipuncture noted. I had a good visit with patient today, alma social media executive present. we discussed extensively about the platelet transfusion reaction that provoked profound hypotension, and moving forward with treatment plan. Rationale for platelet transfusion and other blood products support explained to patient. as well as risks and benefits. Patient agrees with plan, and expressed desire to continue to receive transfusions. 3. Vision impaired. History of glaucoma, and multiple trabeculectomy x4 by Dr. Coles in [place]. patient informs me he recently saw Dr. Coles. 4. History of skin cancer, to the left ear. Left neck mole with raised center dime size approximately. Dermatology f/u appointment upcoming 5. Nutrition deficit. patient looks emaciated, significant weight loss in the last year or so, he is on the meals on wheels program. he reports to eat what he receives. Patient instructed to drink Boost three times per day. vs once per day. CHRONIC Managed by PCP COPD on the basis of PFTs and is found to have hypoxia, patient to use 1-2 L Oxygen at night time. and with exertional activity Choledocholithiasis Benign hypertension Peripheral vascular disease Congestive heart failure- Chronic systolic congestive heart failure Fracture Elevated liver function tests Acute kidney injury Gallstones Elevated troponin PLAN - Goal of treatment will be prevention of bleeding vs. normalization of platelet count. We will implement a conservative approach moving forward, in the setting of multiple comorbidities, poor performance status, and limited social support system. Patient is not a candidate right now for Bone marrow Biopsy. - will do a trial of prednisone 60mg Po x5 days. - Will retest for Platelet associated antibodies. If test is positive. We will request HLA matched platelets for future transfusions. - To minimize the impact of transfusion reaction we will: a) transfuse if Platelet < 10K, ecchymosis or active bleeding. b)We will premedicate with Tylenol (325mg PO), Benadryl 25mg PO, solucortef, and initiate transfusion slowly for the first 15 minutes with tight monitoring of vitals, and RN to stay with patient at bedside. - Continue Vitamin B12 shots 1000mc SC, Q4-6 weeks - Follow up next Thursday11/11/2017 with CBC, CMP, -Education, patient instructed to go to ER immediately and or call Clinic if any active bleeding, excessive bruising, Shortness of Breath, Temp >/=100.4, fevers, chills, cardiac type chest pain, bleeding, excessive bruising, headaches , blurry vision, dizziness, abdominal pain, difficulty swallowing, and pain unrelieved by medication. TIME SPENT: 25 minutes > 20 minutes includes but not limited to discussion, counselling and co-ordination~ of care. Discussion with other health care providers, record review, review of lab work, diagnostic tests. Plan discussed extensively with patient. All the questions answered today. Thank you for the opportunity to be involved in the care of Mr. Aries Noel. Billing Level: Return visit 4 BASIL WHITE, ONC Nov 04, 2017 16:51
[2017-11-11 13:49] VITALS: BP 143/80
[2017-11-11 14:30] LABS: PLATELET COUNT, AUTOMATED 44 K/uL (150-450)
[2017-11-18 13:58] LABS: PLATELET COUNT, AUTOMATED 53 K/uL (150-450)
--- NOTE | 2017-11-18 15:24 | Oncology Progress Note ---
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 To minimize the impact of transfusion reaction we will: a) transfuse if Platelet < 10K, ecchymosis or active bleeding. b)We will premedicate with Tylenol (325mg PO), Benadryl 25mg PO, solucortef, and initiate transfusion slowly for the first 15 minutes with tight monitoring of vitals, and RN to stay with patient at bedside. - Continue Vitamin B12 shots 1000mc SC, Q6 weeks HPI HPI Mr. 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 Currently being treated with prednisone 60mg Po Daily. platelet count today is 53K.Patient is seen and examined at the Cancer center, hemodynamically stable, he is reports feeling great today.s/p 2 units of platelets hypotension on 10/30/2017. He reports feeling good today, bilateral upper extremities bruising improving. Patient denies any active bleeding, no mood irritability he denies any cardiac type chest pain, he denies fevers, chills night sweats. Patient is vision impaired Due to glaucoma who has had few surgeries in [place] left eye worse than the right eye. Patient continues to maintain weight 132.9 pounds. since last visit. He complains about the meals on wheel choices. he has increased intake of protein shake, Boost TID. Significant past medical history of glaucoma; hyperlipidemia; history of skin cancer; hypertension; peripheral vascular disease; history of gallstones removal. off note, initial workup done in August 2015. B12 was normal; Serum folate and red cell folate were normal. MMA/ methylmalonic acid was high at 0.5. which was corrected after B12 supplementation 1000mcg Im qMonth. Platelet associated antibodies, direct and indirect, were negative at initial presentation of disease..Platelet antibodies were negative again on 11/11/17. Living Conditions Patient lives alone but he has a home health aide help twice a week PMH Patient History: FH: colon cancer BROTHER Social/Occupational History Social History: Social History This is a 86 Yr old White male, he is W / and has [] Children Hx Smoking: Yes Smoking Status: Former Smoker Exposure to Second Hand Smoke?: No When Quit Tobacco?: QUIT IN 1991 Allergies & Medications Allergies: Coded Allergies: No Known Drug Allergies (Unverified , 10/08/16) Home Meds Active Scripts Simvastatin (SIMVASTATIN) 10 Mg Tablet, 1 MG PO HS, #90 TAB 4 Refills Prov:JOSSE LEWIS MD 04/16/17 Pantoprazole Sodium (PANTOPRAZOLE SODIUM) 40 Mg Tablet.dr, 40 MG PO QDAY, #90 TAB.SR 4 Refills Prov:JOSSE LEWIS MD 11/07/16 Lisinopril (LISINOPRIL) 10 Mg Tablet, 10 MG PO QDAY, #90 TAB 3 Refills Prov:JOSSE LEWIS MD 04/22/16 Albuterol Sulfate 90 Mcg/Act (PROAIR HFA 90 MCG/ACT) 8.5 Gm Hfa.aer.ad, 1-2 PUFF IH 3-4XD, #1 INHALER 3 Refills Prov:JOSSE LEWIS MD 07/30/15 Oxygen (OXYGEN) Inha, 2 L INH QHS, #2 L Prov:JOSSE LEWIS MD 07/19/15 Acetazolamide (ACETAZOLAMIDE) 250 Mg Tablet, 1 TAB PO BID, #180 TAB 3 Refills Prov:JOSSE LEWIS MD 12/13/14 Reported Medications Tetrahydrozoline Hcl (EYE DROPS) 15 Ml Drops, 15 ML OP AB for LANTAPROST 06/04/17 Sodium Chloride (MAGDALENA-128) 15 Ml Soln, 15 ML OD AB 06/04/17 Carvedilol (CARVEDILOL) 12.5 Mg Tablet, 12.5 MG PO BID, #10 TAB 10/20/16 Prednisolone Acetate (PRED FORTE) 1 Ml Drops.susp, 1 DROP OP QDAY 12/13/14 Dorzolamide Hcl/Timolol Maleat (COSOPT EYE DROPS) 10 Ml Drops, 1 DROP OP QDAY 12/13/14 Brimonidine Tartrate (ALPHAGAN P) 5 Ml Drops, 1 DROP OP TID 12/13/14 Review of Systems Constitution: Positive for Appetite/Weight Change, Denies Fever/Chills/Sweating , Denies Recent Infection, Denies Other HEENT: No EARS: Tinnitus, No NOSE: Nasal Discharge, No THROAT: Sore Throat, No EYES: Dipolpia, No EARS: Hearing Problems, No NOSE: Epistaxis, No THROAT: Mouth Ulcers, No EYES: Vision Change, No OTHER Respiratory: No Cough, No Expectoration, No Hemoptysis, No Shortness of Breath , No OTHER Cardiovascular: No Chest Pain, No Orthopnea, No Edema, No Palpitations, No OTHER Gastrointestinal: No Nausea, No Vomitting, No Diarrehea, No Constipation, No Heart Burn, No Swallowing Difficulties, No Abdominal Pain, No Other Gentiourinary: No Hematuria, No Dysuria, No Nocturia, No Other Musculoskeletal: Muscle Pain Hematological: Weakness, Bruising Skin: No Skin Rash, No Lumps, No Erythema, No Dry Skin, No Moist Skin, No Other Psychiatric: Anxiety Vital Signs Vital Signs Temperature: 98.1 Pulse: 74 BP Systolic: 111 BP Diastolic: 66 Respiratory Rate: 16 O2 SAT: 943 O2 Delivery: Room Air Height (feet) 5 Height (inches) 7.00 Weight lb: 159 Weight oz: Weight Kg (J Carlos): 72.12 Pain: 0 ECOG-2 Physical Exam General: Looks Stable, Other (undernourished) HEENT: HEAD:Atraumatic, No EYES: Conjuctivitis, No EYES: Icterus, No MOUTH: Mucocitis, No MOUTH: Oral Thrush, No SINUS: Tenderness to Palpation, No Other Neck: Supple, No Cervical Lymphadenopathy, No Subclavicular Lymphadopathy, No Thyromegaly, No Other Lungs: Clear to Auscultation, Percussion Bilaterally Heart: Regular Rate and Rhythm, No Gallops, No Murmurs, No Clicks, No Rubs, No Other Abdomen: Soft and Nontender, No Hepatosplenomegaly, No Masses, No Other Extremities: No Cyanosis, No Clubbing, No Edema, No Other Lymphatics: No Peripheral Lymphadenopathy, No Other Psychiatric: Mood appears normal Skin: Bruising, Moderate Errythema Breast: No No Masses, No No Nipple Discharge, No No Skin Changes, No Other Assessment and Plan Assessment and Plan Mr. 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 Currently being treated with prednisone 60mg Po Daily. platelet count today is 53K.Patient is seen and examined at the Cancer center, hemodynamically stable, he is reports feeling great today.s/p 2 units of platelets hypotension on 10/30/2017. He reports feeling good today, bilateral upper extremities bruising improving. hemodynamically stable and afebrile. Denies no pain no dizziness, no signs of infections. DIAGNOSTIC DATA CBC,CMP reviewed on [facility] within acceptable parameters except as per HPI. 1. 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 platelet count is 53K , s/p platelet transfusion on 10/30/17. Platelet were 14K on 10/30/2017. with excessive bruising. His baseline is in the 30-40K. Highest platelet count has been 50k after 2 units transfusion, and lowest platelet count has been 14K. Platelet antibodies were negative again on 11/11/17. initial workup done in August 2015. B12 was normal; Serum folate and red cell folate were normal. MMA/ methylmalonic acid was high at 0.5. which was corrected after B12 supplementation 1000mcg Im qMonth. Platelet associated antibodies, direct and indirect, were negative.The patient had a high methylmalonic acid assay at 0.5 and for this reason the patient received vitamin B12 supplements in the form of 1000 mcg intramuscularly. Despite that fact, his methylmalonic acid normalized at 0.15, but his platelets are still low today. 2. Biochemical Vitamin B12 deficiency . Vit B12 is 1500; MMA is 0.21; folate is 12.3. The patient receives vitamin B12 supplements shots 1000 mcg monthly. We will continue B12 shots Q 4-6 weeks. 3. history of Acute HTR Transfusion Reaction Platelet on 10/30/2017. which occurred within minutes of initiating transfusion patient developed profound hypotension. Will recheck platelet antibodies. Transfusion reaction intervention were Immediately implemented per Hospital protocol. transfusion was stopped, and unit sent to blood bank. per Nursing staff report, patient was quickly stabilized, there were no chills, fever, flank pain, no back pain, no oozing from venipuncture noted. I had a good visit with patient today, [facility] social worker was present. we discussed extensively about the platelet transfusion reaction that provoked profound hypotension, and moving forward with treatment plan. Rationale for platelet transfusion and other blood products support explained to patient. as well as risks and benefits. Patient agrees with plan, and expressed desire to continue to receive transfusions. 3. Vision impaired. History of glaucoma, and multiple trabeculectomy x4 by Dr. Coles in [place]. patient informs me he recently saw Dr. Coles. 4. History of skin cancer, to the left ear. Left neck mole with raised center dime size approximately. Dermatology f/u appointment upcoming 5. Nutrition deficit. patient looks emaciated, significant weight loss in the last year or so, he is on the meals on wheels program. he reports to eat what he receives. Patient instructed to drink Boost three times per day. vs once per day. CHRONIC Managed by PCP COPD on the basis of PFTs and is found to have hypoxia, patient to use 1-2 L Oxygen at night time. and with exertional activity Choledocholithiasis Benign hypertension Peripheral vascular disease Congestive heart failure- Chronic systolic congestive heart failure Fracture Elevated liver function tests Acute kidney injury Gallstones Elevated troponin PLAN - Goal of treatment will be prevention of bleeding and normalization of platelet count with Steroids. We will implement a conservative approach moving forward, in the setting of multiple comorbidities, poor performance status, and limited social support system. Patient is not a candidate right now for Bone marrow Biopsy. - Continue prednisone 60mg Po [id number] days. - Starting on 11/26/2017 will initiate prednisone dose of 50mg Po daily x 7 days RN to please call in prednisone prescriptions Weekly. -12/03/17 prednisone 30 mg Po daily x 7 days - 12/10/17 prednisone 20 mg Po x 7 days -12/17/2017 prednisone 10 mg Po x 7 days -12/24/2017 prednisone 5mg Po x 7 days -12/31/17 prednisone 2.5mg Po X 7 days. and Discontinuation thereafter. - Follow up next Labs CBC/diff CMP Q 2 weeks. - Labs due on 12/03/17; 12/17/2017; 12/31/17. This labs may overlap with B12 injections. Please team RN adjust accordingly. - Tightly Monitor for infections rashes, mood irritability. - Platelet associated antibodies came back negative. - WBC expected to be elevated in the setting of steroid therapy. - To minimize the impact of transfusion reaction we will: a) transfuse if Platelet < 10K, ecchymosis or active bleeding. b)We will premedicate with Tylenol (325mg PO), Benadryl 25mg PO, solucortef, and initiate transfusion slowly for the first 15 minutes with tight monitoring of vitals, and RN to stay with patient at bedside. - Continue Vitamin B12 shots 1000mc SC, Q6 weeks -Follow up with Dr. Vargas -12/24/2017 -Education, patient instructed to go to ER immediately and or call Clinic if any active bleeding, excessive bruising, Shortness of Breath, Temp >/=100.4, fevers, chills, cardiac type chest pain, bleeding, excessive bruising, headaches , blurry vision, dizziness, abdominal pain, difficulty swallowing, and pain unrelieved by medication. TIME SPENT: 20 minutes > 15 minutes includes but not limited to discussion, counselling and co-ordination~ of care. Discussion with other health care providers, record review, review of lab work, diagnostic tests. Plan discussed extensively with patient. All the questions answered today. Thank you for the opportunity to be involved in the care of Mr. Aries Noel. Billing Level: Return visit 3 BASIL WHITE, ONC Nov 18, 2017 15:24
[2017-11-25 11:54] VITALS: BP 138/68
[2017-11-25 14:11] LABS: PLATELET COUNT, AUTOMATED 45 K/uL (150-450)
--- NOTE | 2017-11-25 21:09 | ONCOLOGY FOLLOW UP NOTE ---
EVENT DATE: November 25, 2017 REASON FOR FOLLOWUP Thrombocytopenia, likely ITP. CHIEF COMPLAINT Fatigue, weight loss. INTERIM HISTORY Jairo returns to clinic for a followup visit today. He has been followed in this clinic by Dr. Brown and Karen Renner NP, and is here for a second opinion today. To review, he had initially presented in mid 2016 with what appears to be isolated thrombocytopenia. He had a workup performed at that time. He has been receiving regular vitamin B12 injections. There was initial concern for ITP, and the patient had been followed regularly with laboratory studies that had been pretty stable and not requiring intervention. Most recently, he had presented with worsened thrombocytopenia and a platelet count of 14,000. This was accompanied by worsened hemoglobin. The patient is legally blind, and he is quite skeptical that he would ever be able to detect a significant amount of blood in the urine or stool, for example. He is aware of significant bruising over his forearms. He has not noted any epistaxis. In any case, the patient has most recently received platelet transfusions and, unfortunately, with his latest platelet transfusion, he had a significant transfusion reaction that was handled here in the Infusion Center. He has also been started on prednisone, initially at a dose of 60 mg p.o. daily, and he recently was brought down to 50 mg p.o. daily. He reports that he is doing okay with the prednisone and that he has not noticed any insomnia, irritability, or restlessness. The patient is somewhat unsure about the status of hematologic picture, he is concerned about the platelet transfusion reaction, and he is here to discuss management of his chronically low platelet count. REVIEW OF SYSTEMS Positive for bruising, arthralgias, fatigue, blindness, but is otherwise unremarkable. All systems were reviewed. PAST MEDICAL HISTORY 1. Glaucoma. 2. Hyperlipidemia. 3. Hypertension. 4. Peripheral vascular disease. 5. Depression. 6. History of skin cancer. PAST SURGICAL HISTORY 1. Trabeculectomy. 2. History of skin cancers. 3. Tonsillectomy as a child. 4. Past eye surgery for glaucoma and cataracts. SOCIAL HISTORY The patient is a , and he does have one daughter who lives in [place]. 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 He does get assistance about three times a week from a caregiver. He is a former smoker. There is no history of alcohol abuse or illicit drug use. FAMILY HISTORY There is a reported family history of colon cancer in his brother at an elderly age. He reports that his son had also of pulmonary embolism. CURRENT MEDICATIONS 1. Calcium and vitamin D. 2. Multivitamin. 3. Docusate. 4. Prednisone. ALLERGIES VANCOMYCIN. VITAL SIGNS Temperature is 97.6, blood pressure is 116/71, pulse is 65, respirations 16, oxygen saturation is 97% on room air. Weight is 57.5 kg. PHYSICAL EXAMINATION GENERAL: Patient is alert and oriented times three, in no apparent distress, sitting on the exam room table. He is quite thin. He is interactive and pleasant. HEENT: Anicteric sclerae and findings consistent with cataract/glaucoma. NEUROLOGIC: Otherwise grossly nonfocal, and his gait is slow and deliberate, walking with cane. EXTREMITIES: No edema, clubbing, or cyanosis. SKIN: Significant and diffuse ecchymoses over the forearms bilaterally and a nevus with some scaling over the left neck. LABORATORY STUDIES Reviewed per the [facility] record. IMAGING None today. ASSESSMENT AND PLAN Thrombocytopenia, likely ITP. I had a length and in depth visit with Jairo today. We spent time reviewing his several concerns including his recent platelet transfusion reaction. We went back to 2016 at the time of his presentation and workup performed at that time. I am unsure of the results of his peripheral smear review, and he has done fine with vitamin B12 injections since that time. I see no problem with him continuing with the injections, but I would be sure these are given subcutaneously and not intramuscularly to avoid intramuscular hematoma given his low platelets historically. We discussed other potential causes for thrombocytopenia, and we reviewed his medication list today. He does not have any particularly offending medications. At this point, aspirin should be avoided unless we see better stability in his platelet count. He most recently has also had a fall in his hemoglobin, but historically his thrombocytopenia has been isolated. This is potentially worrisome for an episode of blood loss, but again, with his very limited vision, it is difficult to tell by way of history whether he has lost blood (melena, hematochezia, hematuria, et cetera). He does not have a history of severe epistaxis. I have recommended that Jairo go for additional workup today, especially keeping in mind his significant weight loss over the past year. He will have repeat anemia workup performed, and we will also assess for any presence of autoimmune hemolytic anemia. I would also like for him to have an abdominal ultrasound to assess for organomegaly. In terms of his treatment, hopefully we will be able to taper his prednisone fairly quickly over the course of the next month and a half or so. We will have him do weekly CBCs, and if his platelet count is reasonable, we will bring his prednisone dose by 10 mg weekly. I would like to see the patient back for followup in my clinic when I am next in [place]. I will be back in touch with him with his laboratory and imaging results if there are any particular concerns, and we will review them in detail when he returns to see me. The patient had several additional questions and concerns for me today. I believe I answered all his questions to his satisfaction. I spent a total of 45 minutes with the patient today face to face, and 40 minutes of this were spent in direct counseling and coordination of care. TERRY
[2017-12-02 12:43] VITALS: BP 132/73
[2017-12-02 12:48] LABS: PLATELET COUNT, AUTOMATED 54 K/uL (150-450)
[2017-12-14 09:52] VITALS: BP 110/71
[2017-12-14 10:10] LABS: PLATELET COUNT, AUTOMATED 58 K/uL (150-450)
--- NOTE | 2017-12-15 22:55 | [facility] ONCOLOGY NOTE ---
EVENT DATE: December 14, 2017 CHIEF COMPLAINT/REASON FOR VISIT Mr. Chris is a pleasant, 87-year-old gentleman with ITP who presents for followup. HISTORY OF PRESENT ILLNESS Jairo returns. He is a very pleasant patient of Dr. Brown and Dr. Churchill who presents for another opinion. He developed mild thrombocytopenia in mid 2015, but then it progressed to more significant thrombocytopenia with a level of 14,000. He did have some worsening of his hemoglobin with this as well, but he could have been having blood loss that he is not aware of given his legally blind status. He was started on prednisone approximately 1 mg/kg and is currently on 50 mg with a slow taper. He is responding, and his platelet count is now above 50, most recently at 54,000. He has many old bruises on the skin, but I do not see anything that would make me think of wet purpura or other new lesions on a limited exam. He denies any known blood loss, but as mentioned above, he may be missing some in the toilet bowl. He lives by himself, but does have a caregiver who checks on him. His hemoglobin has improved as well, which I believe is consistent with demonstrating that he has ITP and that the prior anemia was related to some blood loss. I do not think that further aggressive workup is required based on his recovery with prednisone. I do believe he is appropriate now to start a taper of 10 mg weekly; thus, he would be dropping his dose to 40 mg daily for a week, then 30 mg daily for a week, and so on. PAST MEDICAL HISTORY 1. Glaucoma with blindness. 2. Hyperlipidemia. 3. Hypertension. 4. Peripheral vascular disease. 5. History of depression. 6. History of skin cancer. 7. ITP. PAST SURGICAL HISTORY 1. History of multiple skin cancers. 2. History of eye surgeries for cataracts as well as glaucoma. SOCIAL HISTORY Patient is a . He has a daughter who lives in [place]. 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 He has a caregiver who checks on him three days a week, although she is retiring and is going to be replaced with someone else. Former smoker. No significant alcohol or drug use. FAMILY HISTORY Colon cancer. Son from a pulmonary embolism. CURRENT MEDICATIONS 1. Calcium and vitamin D. 2. Multivitamin. 3. Colace. 4. Prednisone on a tapering schedule. ALLERGIES VANCOMYCIN. PHYSICAL EXAMINATION VITAL SIGNS: Blood pressure 110/71, pulse 73, respiratory rate 16, temperature 96.6 Fahrenheit, oxygen saturation 94% on room air. Weight 56.8 kg. Pain zero/10. Fatigue 5/10. GENERAL: Stable condition, resting comfortably in the chair. HEENT: Normocephalic, atraumatic. He has findings consistent with cataracts, glaucoma, and blindness. ABDOMEN: Exam deferred, but he had an ultrasound that was done since we last saw him which showed a borderline enlarged spleen. SKIN: He has significant ecchymoses throughout his body, on the back of his hands, near his neck. No wet purpura. No other abnormal findings on physical exam today. IMPRESSION/PLAN Mr. Chris is very pleasant, 87-year-old gentleman with the following: Idiopathic thrombocytopenia. He is responding appropriately to prednisone. We will continue to taper this. We taper 10 mg each week; thus, he will be dropping the dose to 40 mg daily for this next week. I have asked that our team reach out to our elementary school social worker to follow him and try to help to see if his caregiver could assist with the proper management of this. I would like to have him see our nurse practitioner in two weeks to make sure he is doing well. He is not interested in home health, and I recommended it today. He did not get along with the home health agency that worked with him previously as they were doing full assessments, and he only felt that it was appropriate for medication management. I answered all of his questions. He may follow up with me, Dr. Churchill, or Dr. Brown later in the year as well. BILLING Level 5. Total time 45 minutes, counseling time 25. Review of his chart in detail. [facility]
--- NOTE | 2017-12-16 12:32 | RADIOLOGY IMAGING REPORT ---
FACILITY: [facility] [place] PATIENT NAME: Bert Chris : 1930 MR: [id number] V: [id number] EXAM DATE: ORDERING PHYSICIAN: LESLIE DAMIAN TECHNOLOGIST: Location: [facility] Patient: Bert Chris : 1930 Visit/Account:[id number] Date of Sevice: 12/16/2017 CHEST/AB/PELV W/OUT CONTRAST HISTORY: Weight loss ADDITIONAL HISTORY: None. TECHNIQUE: Contiguous axial images acquired through the chest abdomen and pelvis without IV contrast. Coronal and sagittal reformatting was also performed. Dose Lowering Technique One of the following dose optimization techniques was utilized in the performance of this exam: Autom ated exposure control; adjustment of the mA and/or kV according to the patient's size; or use of an i terative reconstruction technique. Specific details can be referenced in the facility's radiology C T exam operational policy. COMPARISON: CT on pelvis October 08, 2016 FINDINGS: CHEST: Lungs/Pleura: There is pleural thickening adjacent fibrotic change along the posterior aspect the ri ght pulmonary apex. There is asymmetric irregular pleural thickening along the left pulmonary apex a ppears more masslike with adjacent 4 mm nodule.. There is a 2 mm subpleural nodule posterior medial aspect left lower lobe best seen on image 61 of se alex 3. There is a 6 mm calcified nodule posterior aspect the right upper lobe best seen on image 31 of serie s 3 and a small pleural-based ossification lateral aspect of the right upper lobe there is peripheral interstitial septal thickening seen along the posterior lateral aspect the right upper lobe. Similar changes are seen in the periphery of the right lower lobe which were present on the prior CT of abdomen and pelvis. There is mild centrilobular emphysema with an upper lobe predominance Mediastinum/lymph nodes: Mediastinal structures not ideally evaluated due to lack of intravenous con trast as a 1.7 x 1.2 cm pretracheal lymph node there are multiple AP window lymph nodes largest measu ring approximately 1.6 x 1.1 cm. There are multiple subcarinal lymph nodes a client services representative lymph no de measures 1.4 x 0.9 cm Heart/vessels: There are moderate calcifications throughout the thoracic aorta and branch vessels in cluding the coronary arteries Bones/soft tissues: There is a gentle S-shaped scoliosis of the thoracal lumbar spine with mild spon dylotic changes. There is mild loss of height of the superior endplate of T5 of indeterminate age ABDOMEN AND PELVIS: Hepatobiliary: There are multiple gallstones present,. The common bile duct is dilated up to 1.4 cm which is increased when compared to the prior study. A small linear collection of air is seen in th e left lobe of the liver which may be within the left biliary radicals . 1.25 cm hypoattenuating mass in segment 4A remained stable Spleen: The spleen is enlarged measuring 15.3 cm in length slightly increased when compared the prior study which time the spleen measured 14 cm Pancreas: There Is a linear collection of air in the head of the pancreas which is likely within the pancreatic duct 2 x 1.4 x 1.2 cm hypoattenuating mass extending superiorly from the junction of the body and tail the pancreas not appreciated previously. This could represent an exophytic pancreatic mass versus a lymph node. Adrenals: Negative. 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 Nonobstructing calculi measuring up to 3 mm present in the left renal collecting system. 5.2 cm left renal cyst also noted in addition to smaller hypodensity which is too small to characte rize. Genitalia: Prostate gland is mildly prominent impinging upon the floor the bladder GI: Diverticulosis left-sided colon although no CT evidence of acute diverticulitis Vessels/spaces/nodes: Severe vascular calcifications are een throughout the abdomen and pelvis. 3. 3 cm infrarenal abdominal aortic aneurysm appears relatively unchanged.. 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 This could represent an exophytic pancreatic mass versus lymph node. There are multiple lymph node s adjacent to the head of the pancreas. A client services representative lymph node measures 1.6 x 1 cm Bones/soft tissues: Is S-shaped scoliosis of the thoracal lumbar spine with spondylotic changes Additional findings: None pertinent. IMPRESSION: There is asymmetric irregular pleural thickening along the left pulmonary apex which appears masslike and is asymmetric when compared to the mild thickening over the right pulmonary apex. Malignancy sh ould be excluded There is a 2 mm subpleural nodule medial aspect left lower lobe best seen on image 61 of series 3 6. Also noted is a 6 mm calcified nodule posterior aspect of the right upper lobe. Peripheral interstitial and septal thickening seen along the posterior lateral aspect the right upper lobe with similar chronic changes seen in the periphery of the right lower lobe which were present o n the prior CT of abdomen and pelvis. Mild centrilobular emphysema with upper lobe predominance. There is mediastinal adenopathy as described above which could be reactive although malignancy is not excluded There are multiple gallstones present. The common bile duct is dilated up to 1.4 cm which is increas ed when compared the prior study. There appears to be a small linear collection of air in the left lobe of the liver which may be withi n the left biliary radicles. A linear collection of air is also seen in the head the pancreas which may be within the pancreatic duct. The etiology is unclear There is a 2 x 1.4 x 1.2 cm hypoattenuating mass extending superior from the junction of the body and tail the pancreas not appreciated previously which could represent an expected pancreatic mass versu s lymph node. There are multiple peripancreatic lymph nodes also adjacent to the head the pancreas. 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 Splenomegaly slightly increased Report Dictated By: Freya Reyes MD at 12/16/2017 11:37 AM Report E-Signed By: Freya Reyes MD at 12/16/2017 12:27 PM WSN:[email or web address]
[2017-12-17 14:05] VITALS: BP 121/49
[2017-12-17 15:18] LABS: PLATELET COUNT, AUTOMATED 44 K/uL (150-450)
[2017-12-28 12:45] VITALS: BP 90/61
[2017-12-28 13:50] LABS: PLATELET COUNT, AUTOMATED 67 K/uL (150-450)
--- NOTE | 2017-12-28 15:50 | Oncology Progress Note ---
History of Present Illness Evaluation Evaluation Date: Dec 28, 2017 Evaluation Time: 13:10 Primary Care Provider Primary Care Provider: Baron Sheikh MD Accompanied by Accompanied by: Self Last seen by : Blu 12/14/2017 Chief Complaint Chief Complaint Follow up management Thrombocytopenia secondary to ITP Treatment Treatment Prednisone and platelet transfusion support PRN. To minimize the impact of transfusion reaction we will: a) transfuse if Platelet < 10K, ecchymosis or active bleeding. b)We will premedicate with Tylenol (325mg PO), Benadryl 25mg PO, solucortef, and initiate transfusion slowly for the first 15 minutes with tight monitoring of vitals, and RN to stay with patient at bedside. - Continue Vitamin B12 shots 1000mc SC, Q6 weeks HPI HPI Mr. 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 Currently being treated with prednisone 60mg Po Daily tapering to 10mg weekly as of 11/26/2017. platelet count today is 67K. on prednisone 5mg Po until 12/31/2017. then he will initiate prednisone 2.5mg Po daily starting 01/01/2018. Patient is seen and examined at the Cancer center, very ill looking, undernourished, dehydrated and unstable from baseline. Bp 90/61-73. Temp 96.8 . Patient is typically more animated compare to today's presentation. informs me that he fell at home last Thursday12/22/2017. He is legally blind, his neighbor came to help, EMT was called, he signed a refusal form to be transported to the Er, although EMT recommended him to be evaluated, " I did not think I needed to come to the Hospital." Patient lives alone with the help of a volunteer who checks on him once per week. s/p 2 units of platelets with transfusion reaction causing hypotension on 10/30/2017. On exam bilateral upper extremities with bruising, ecchymosis, and scabs, as well as left neck. Patient is unable to move and allow left shoulder to be touched, with signs of being in pain. Lung sounds are very congested/bronchi suspicion for respiratory infection. Given his visual impairment it is a challenge for him to notice any active bleeding. He denies any cardiac type chest pain, Patient is vision impaired Due to glaucoma who has had few surgeries in [place] left eye worse than the right eye. Significant past medical history of glaucoma; hyperlipidemia; history of skin cancer; hypertension; peripheral vascular disease; history of gallstones removal. I had Dr. Yee speak to patient in regards to pursuing a Bone marrow biopsy once he is stable, and also went over CT scan results done on findings, which we will repeat imaging in approximately 2-3 months. Initial Plan was to image left shoulder and chest xray and work up for PNA, given poor venous access, elevated BUN/Cr. I spoke to Dr. Tammi Castro Er Physician. We will transfer patient to the ER Now for further pulmo, renal, work up off note, initial workup done in August 2015. B12 was normal; Serum folate and red cell folate were normal. MMA/ methylmalonic acid was high at 0.5. which was corrected after B12 supplementation 1000mcg Im qMonth. Platelet associated antibodies, direct and indirect, were negative at initial presentation of disease.Platelet antibodies were negative again on 11/11/17. hydration and further evaluation. Living Conditions Lives alone. poor support system. Diagnostic Studies Result Diagram: 12/28/17 1336 12/28/17 1336 PMH Patient History: FH: colon cancer BROTHER Social/Occupational History Social History: Social History This is a 86 Yr old White male, he is W / and has [] Children Hx Smoking: Yes Smoking Status: Former Smoker Exposure to Second Hand Smoke?: No When Quit Tobacco?: QUIT IN 1991 Allergies & Medications Allergies: Coded Allergies: No Known Drug Allergies (Unverified , 12/29/17) Home Meds Active Scripts Simvastatin (SIMVASTATIN) 10 Mg Tablet, 1 MG PO HS, #90 TAB 4 Refills Prov:JOSSE LEWIS MD 04/16/17 Pantoprazole Sodium (PANTOPRAZOLE SODIUM) 40 Mg Tablet.dr, 40 MG PO QDAY, #90 TAB.SR 4 Refills Prov:JOSSE LEWIS MD 11/07/16 Lisinopril (LISINOPRIL) 10 Mg Tablet, 10 MG PO QDAY, #90 TAB 3 Refills Prov:JOSSE LEWIS MD 04/22/16 Albuterol Sulfate 90 Mcg/Act (PROAIR HFA 90 MCG/ACT) 8.5 Gm Hfa.aer.ad, 1-2 PUFF IH 3-4XD, #1 INHALER 3 Refills Prov:JOSSE LEWIS MD 07/30/15 Oxygen (OXYGEN) Inha, 2 L INH QHS, #2 L Prov:JOSSE LEWIS MD 07/19/15 Acetazolamide (ACETAZOLAMIDE) 250 Mg Tablet, 1 TAB PO BID, #180 TAB 3 Refills Prov:JOSSE LEWIS MD 12/13/14 Reported Medications Fish Oil/Borage/Flax/Om3,6,9#1 (OMEGA 3-6-9 COMPLEX SOFTGEL) 400 Mg Capsule, 800 MG PO DAILY, CAPSULE 12/29/17 Timolol (BETIMOL) 5 Ml Drops, 1 DROP OP DAILY 12/29/17 Latanoprost (LATANOPROST) 2.5 Ml Drops, 2.5 ML OP HS 12/29/17 Furosemide (FUROSEMIDE) 20 Mg Tablet, 1 TAB PO DAILY, TAB 12/29/17 Prednisone (PREDNISONE) 50 Mg Tablet, 20 MG PO DAILY Pt to taper dose by 10mg per week. 12/14/17 Sodium Chloride (MAGDALENA-128) 15 Ml Soln, 15 ML OD AB 06/04/17 Carvedilol (CARVEDILOL) 12.5 Mg Tablet, 12.5 MG PO BID, #10 TAB 10/20/16 Prednisolone Acetate (PRED FORTE) 1 Ml Drops.susp, 1 DROP OP BID 12/13/14 Dorzolamide Hcl/Timolol Maleat (COSOPT EYE DROPS) 10 Ml Drops, 1 DROP OP QDAY 12/13/14 Brimonidine Tartrate (ALPHAGAN P) 5 Ml Drops, 1 DROP OP TID 12/13/14 Discontinued Reported Medications Tetrahydrozoline Hcl (EYE DROPS) 15 Ml Drops, 15 ML OP AB for LANTAPROST 06/04/17 Review of Systems Constitution: Positive for Appetite/Weight Change; Denies Fever /Chills/Sweating, Denies Recent Infection, Denies Other HEENT: No EARS: Tinnitus, No NOSE: Nasal Discharge, No THROAT: Sore Throat, No EYES: Dipolpia, No EARS: Hearing Problems, No NOSE: Epistaxis, No THROAT: Mouth Ulcers, No EYES: Vision Change, No OTHER Respiratory: Cough, Expectoration; No Hemoptysis; Shortness of Breath; No OTHER Cardiovascular: No Chest Pain, No Orthopnea, No Edema; Palpitations; No OTHER Gastrointestinal: No Nausea, No Vomitting, No Diarrehea, No Constipation, No Heart Burn, No Swallowing Difficulties, No Abdominal Pain, No Other Gentiourinary: No Hematuria, No Dysuria, No Nocturia, No Other Musculoskeletal: Muscle Pain Hematological: Weakness, Bruising Skin: No Skin Rash, No Lumps, No Erythema, No Dry Skin, No Moist Skin, No Other Psychiatric: Anxiety Vital Signs Vital Signs Temperature: 96.4 Pulse: 81 BP Systolic: 90 BP Diastolic: 61 Respiratory Rate: 16 O2 SAT: 91 O2 Delivery: Room Air Height (feet) 5 Height (inches) 7.00 Weight lb: 159 Weight oz: Weight Kg (J Carlos): 72.12 Pain: 0 ECOG- 3 Physical Exam General: Other (undernourished, unstable) HEENT: HEAD:Atraumatic; No EYES: Conjuctivitis, No EYES: Icterus, No MOUTH: Mucocitis, No MOUTH: Oral Thrush, No SINUS: Tenderness to Palpation, No Other Neck: Supple; No Cervical Lymphadenopathy, No Subclavicular Lymphadopathy, No Thyromegaly, No Other Lungs: Percussion Bilaterally (Ronchi, rales, congested) Heart: Regular Rate and Rhythm; No Gallops, No Murmurs, No Clicks, No Rubs, No Other Abdomen: Soft and Nontender; No Hepatosplenomegaly, No Masses, No Other Extremities: No Cyanosis, No Clubbing, No Edema, No Other Lymphatics: No Peripheral Lymphadenopathy, No Other Psychiatric: Other (Not as talkative) Skin: Bruising, Moderate Errythema, Severe Errythema, Other (echymosis, scabs,) Breast: No No Masses, No No Nipple Discharge, No No Skin Changes, No Other Assessment and Plan Assessment and Plan Mr. 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 Currently being treated with prednisone 60mg Po Daily tapering to 10mg weekly as of 11/26/2017. Platelet count today is 67K. on prednisone 5mg Po until 12/31/2017. then he will initiate prednisone 2.5mg Po daily starting 01/01/2018. Patient is seen and examined at the Cancer center, very ill looking, undernourished, dehydrated and unstable from baseline. Bp 90/61-73. Temp 96.8 . patient informs me that he fell at home last Thursday12/22/2017. He is legally blind, his neighbor came to help, EMT was called, he signed a refusal form to be transported to the Er, although EMT recommended him to be evaluated, " I did not think I needed to come to the Hospital." Patient lives alone with the help of a volunteer who checks on him once per week. s/p 2 units of platelets with transfusion reaction causing hypotension on 10/30/2017. On exam bilateral upper extremities with bruising, ecchymosis, and scabs, as well as left neck. Patien t is unable to move and allow left shoulder to be touched. Lung sounds are very congested/bronchi suspicion for respiratory infection. DIAGNOSTIC DATA CBC,CMP reviewed on [facility] Elevated BUN/CR 1. 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 Platelet count today is 67K. on prednisone 5mg Po until 12/31/2017. then he will initiate prednisone 2.5mg Po daily starting 01/01/2018 x1 week.. s/p platelet transfusion on 10/30/17. Platelet were 14K on 10/30/2017. with excessive bruising. His baseline platelet is in the 30-40K. Highest platelet count has been 50k after 2 units transfusion, and lowest platelet count has been 14K. Platelet antibodies were negative again on 11/11/17. initial workup done in August 2015. B12 was normal; Serum folate and red cell folate were normal. MMA/ methylmalonic acid was high at 0.5. which was corrected after B12 supplementation 1000mcg Im qMonth. Platelet associated antibodies, direct and indirect, were negative.The patient had a high methylmal onic acid assay at 0.5 and for this reason the patient received vitamin B12 supplements in the form of 1000 mcg intramuscularly. Despite that fact, his methylmalonic acid normalized at 0.15, but his platelets are still low today. 2. Acute renal injury. Cr baseline is 1.50 aporx. Cr today is 2.10 in the setting of a recent fall, lack of home health aid, thrombocytopenia and hydration. Bolus Iv fluid will need to be impelemeted as well as monitor renal function. 3. Biochemical Vitamin B12 deficiency . Vit B12 is 1500; MMA is 0.21; folate is 12.3. The patient receives vitamin B12 supplements shots 1000 mcg monthly. We will continue B12 shots Q 4-6 weeks. 4. History of Acute HTR Transfusion Reaction Platelet on 10/30/2017. which occurred within minutes of initiating transfusion patient developed profound hypotension. Will recheck platelet antibodies. Transfusion reaction intervention were Immediately implemented per Hospital protocol. transfusion was stopped, and unit sent to blood bank. per Nursing staff report, patient was quickly stabilized, there were no chills, fever, flank pain, no back pain, no oozing from venipuncture noted. I had a good visit with patient today, [facility] social worker was present. we discussed extensively about the platelet transfusion reaction that provoked profound hypotension, and moving forward with treatment plan. Rationale for platelet transfusion and other blood products support explained to patient. as well as risks and benefits. Patient agrees with plan, and expressed desire to continue to receive transfusions. 3. Vision impaired. History of glaucoma, and multiple trabeculectomy x4 by Dr. Coles in [place]. patient informs me he recently saw Dr. Coles. 4. History of skin cancer, to the left ear. Left neck mole with raised center dime size approximately. s/p Dermatology visit, monitor for acinic keratosis. 5. Nutrition deficit. patient looks emaciated, undernourished, significant weight loss in the last year or so, he is on the meals on wheels program. he reports to eat what he receives. Patient instructed to drink Boost three times per day. vs once per day. CHRONIC Managed by PCP COPD on the basis of PFTs and is found to have hypoxia, patient to use 1-2 L Oxygen at night time. and with exertional activity Choledocholithiasis Benign hypertension Peripheral vascular disease Congestive heart failure- Chronic systolic congestive heart failure Fracture Elevated liver function tests Acute kidney injury Gallstones Elevated troponin PLAN -We will Transfer patient to the ER for further renal, pulmo, and musculoskeletal work up and evaluation. Report Given to Tammi Mustafa MD. - Consult for possible Port placement and Bone marrow biopsy and aspirate with Dr Mendoza. - Will repeat CT scan in 2-3 months - Xray left shoulder. Possible left shoulder Fracture recent fall at home on 12/22/2017 - Xray Chest Ap/lateral . Possible PNA - Insert a Temporary Central line/PICC, given difficult Iv acces, and management of future treatment and frequent upcoming Lab monitoring. - Coag panel, patient unsure if he hit his head during the fall. - -IV Bolus NS 500-1000 ml. for Acute renal failure. - UA for possible UTI - Patient currently on prednisone 5mg Po daily until 12/31/2017 -Patient to continue prednisone tapering per initial plan on 11/26/2017.patient will initiate 2.5mg of prednisone Po daily x 1 more week - Follow up with PCP - staff engineer to arrange for Home Health, upon Dc from Hospital, until stabilized. patient has been refusing thus far, as he prefers to remain in his home vs. Home health or SNF. - Follow up with MD/JEZ after Bone marrow biopsy. - Continue coordination of care, and labs per protocol. a) We will transfuse if Platelet < 10K, ecchymosis or active bleeding. b)We will premedicate with Tylenol (325mg PO), Benadryl 25mg PO, solucortef, and initiate transfusion slowly for the first 15 minutes with tight monitoring of vitals, and RN to stay with patient at bedside. - Continue Vitamin B12 shots 1000mc SC, Q6 weeks -Education, patient instructed to go to ER immediately and or call Clinic if any active bleeding, excessive bruising, Shortness of Breath, Temp >/=100.4, fevers, chills, cardiac type chest pain, bleeding, excessive bruising, headaches, blurry vision, dizziness, abdominal pain, difficulty swallowing, and pain unrelieved by medication. TIME SPENT: 45 minutes > 40 minutes includes but not limited to discussion, counselling and co-ordination~ of care. Discussion with other health care providers, record review, review of lab work, diagnostic tests. Plan discussed extensively with patient. All the questions answered today. Thank you for the opportunity to be involved in the care of Mr. Aries Noel. Billing Level: Return visit 5 CC Copies to: CELIA CRUZ MD; JENNIFER YEE MD; LESLIE DAMIAN MD ; BASIL WHITE, ONC Dec 28, 2017 15:50
[2017-12-30 10:00] VITALS: Wt 56.8 kg
[~2018-01-11 10:30] MED LIST changes: +ACETAMINOPHEN 325 MG TAB PO ONE; +CYANOCOBALAMIN 1000MCG/ML VIAL IM ONLY ONE; +CYANOCOBALAMIN 1000MCG/ML VIAL SUBQ ONE; +DEXTROSE 5%(*) 100 ML BAG 100 ML IVPB PRN; +HYDROCORTISONE 100 MG/2 ML IVP PRN; +LIDOCAINE/SOD BICARB 8.4% SYR ID PRN; +NS(*) 0.9% 100 ML BAG 100 ML IVPB PRN; +NS(*) 0.9% 500 ML BAG 500 ML IV PRN; +diphenhydrAMINE 25 MG CAP PO ONE
[2018-01-11 10:47] VITALS: BP 76/58
--- NOTE | 2018-01-12 17:03 | ONCOLOGY FOLLOW UP NOTE ---
EVENT DATE: January 11, 2018 CHIEF COMPLAINT/REASON FOR VISIT Mr. Chris is a pleasant, 87-year-old gentleman who is here for followup with thrombocytopenia. HISTORY OF PRESENT ILLNESS Jairo returns. He is a very pleasant patient of Dr. Brown and Dr. Churchill who we have been following since 2016 for mild thrombocytopenia. This has progressed and was as low as 14,000. He thankfully responded to steroids, and his most recent level was above 60,000. We are tapering it slowly and plan to taper it down to 10 mg daily and then stop. He had a recent hospitalization after his bone marrow biopsy, and I am very concerned with his imaging. I reviewed his imaging in detail with him today. There are cystic masses in the pancreas as well as biliary dilatation. I am very concerned that there is a hepatobiliary cancer that we are not seeing well and would need to be biopsied by ERCP. He also has new pleural thickening, and this could be metastatic disease versus a primary cancer as well. I had an excellent conversation with him about his goals of care. I described some of the procedures I would recommend including an ERCP as well as a consideration of a CT-guided biopsy. Risks are significant with this. He is hypotensive today, but asymptomatic thankfully. I discussed that my pretest probability for cancer is high, and I discussed consideration for treatment of positive cancers being surgery and/or chemotherapy, both of which I think carry more risk than benefit. He states that he agrees and would like to not pursue more aggressive workup or treatment for this. As a result, I think hospice is appropriate for the patient. This has been discussed with him by other colleagues as well. Hospice is aware of him. He states overall today is a good day. He denies any dizziness. His daughter lives in [place], and I am happy to speak with her as well to update her on these above issues. PAST MEDICAL HISTORY 1. Glaucoma with blindness. 2. Hyperlipidemia. 3. Hypertension. 4. Peripheral vascular disease. 5. History of depression. 6. History of skin cancer. 7. ITP. PAST SURGICAL HISTORY 1. History of multiple skin cancers. 2. History of eye surgeries for cataracts as well as glaucoma. SOCIAL HISTORY Patient is a . He has a daughter who lives in [place]. 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 He has a caregiver who checks on him three days a week, although she is retiring and is going to be replaced with someone else. Former smoker. No significant alcohol or drug use. FAMILY HISTORY Colon cancer. Son from a pulmonary embolism. CURRENT MEDICATIONS 1. Calcium and vitamin D. 2. Multivitamin. 3. Colace. 4. Prednisone on a tapering schedule. ALLERGIES VANCOMYCIN. REVIEW OF SYSTEMS CONSTITUTIONAL: No fevers, chills. Positive weight loss, he states. HEENT: Positive blindness. SKIN: Multiple bruises and falls. He attributes this to his care facility, but I also think it is related to his underlying medical condition and vision loss. CARDIOVASCULAR: No chest pain or dyspnea on exertion. He lives a sedentary lifestyle. RESPIRATORY: No shortness of breath, wheeze, cough. GASTROINTESTINAL: No nausea or vomiting. GENITOURINARY: No dysuria. MUSCULOSKELETAL: Positive weakness. No joint pain currently. PSYCHIATRIC: No anxiety or depression. ENDOCRINE: No heat or cold intolerance. Remainder of 14-point review of systems otherwise negative. PHYSICAL EXAMINATION VITAL SIGNS: Blood pressure 76/58, but asymptomatic, pulse 69, respiratory rate 16, temperature 96.7 Fahrenheit, oxygen saturation 95% on room air. Pain zero/10. Fatigue 2/10. GENERAL: Stable condition, resting comfortably in the chair. HEENT: Normocephalic, atraumatic. Blindness present. I believe he has significant cataracts. SKIN: Multiple bruising including some bruising on the backs of his hands. I do not believe this is consistent with abuse, but instead with falls. ABDOMEN: Exam deferred, but it is known he has splenomegaly that has worsened in the last year. Remainder of physical exam deferred due to amount of time spent in counseling and coordination of care regarding his goals of care. IMPRESSION AND PLAN Mr. Chris is very pleasant, 87-year-old gentleman with the following: Thrombocytopenia. His bone marrow biopsy is negative. I do believe he has splenic sequestration. 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 We will taper his prednisone slightly more down to 10 mg, but then continue this likely life long to keep his platelets up. I do recommend hospice. Please see the History of Present Illness above for some comments regarding our goals of care discussion today. I would be more than happy to speak with his daughter to update her about this as well. I spoke with our social welfare administrator today, who is going to help with increasing his services. I do think it is reasonable to continue physical therapy if it will help him get stronger and reduce the risk of falls. I do not think that is contradictory to the recommendation of hospice. I would like to back off on labs and only get labs every four to six weeks instead of as frequently as we have been. It would be reasonable to stop getting labs as well. I answered all of his questions today. BILLING Level 4. Total time 30 minutes, counseling time 25. MTDD
== END 2018-01-26 ==
LOC: ONC 10:30
PROVIDERS: ATTEND Internal Medicine Medical Oncology
DX: D69.59 Other secondary thrombocytopenia (principal); D69.3 Immune thrombocytopenic purpura; E53.8 Deficiency of other specified B group vitamins; Z87.891 Personal history of nicotine dependence; Z79.899 Other long term (current) drug therapy; D64.9 Anemia, unspecified; E78.5 Hyperlipidemia, unspecified; Z85.828 Personal history of other malignant neoplasm of skin; R53.1 Weakness; R53.83 Other fatigue; R06.02 Shortness of breath; I73.9 Peripheral vascular disease, unspecified; F32.9 Major depressive disorder, single episode, unspecified; H40.9 Unspecified glaucoma; R63.4 Abnormal weight loss; J44.9 Chronic obstructive pulmonary disease, unspecified; K80.50 Calculus of bile duct without cholangitis or cholecystitis without obstruction; G93.2 Benign intracranial hypertension; I50.9 Heart failure, unspecified; R79.89 Other specified abnormal findings of blood chemistry; N17.9 Acute kidney failure, unspecified; I10 Essential (primary) hypertension; K86.9 Disease of pancreas, unspecified
CPT/HCPCS: 36415; 71250; 74176; 82378; 82607; 82746; 83615; 83921; 84153; 85025; 85045; 86023; 86301; 86880; 86900; 86901; 87205; 96372; 96374; A9270; G0463; J1720; J3420; J7040; P9035; Q0163; 36430; 82040; 82247; 82310; 82374; 82435; 82565; 82728; 82947; 83010; 83540; 83550; 84075; 84132; 84155; 84295; 84450; 84460; 84520; 88184; 88185; 99202; 99212